=== PATIENT | female | born 1940 | race Caucasian/White ===

== ENCOUNTER 2021-10-25 18:08 | Emergency (ER) | payer MEDICARE, SELFPAY ==
[2021-10-25] VITALS (32 sets, daily range): BP systolic 170–211; BP diastolic 88–137; PULSE 89–109; RESP 13–37; O2SAT 83–99; BMI 39.0
--- NOTE | 2021-10-25 18:17 | XRR_ITS ---
PROCEDURE INFORMATION: Exam: XR Chest Exam date and time: 10/25/2021 6:42 PM Age: 81 years old Clinical indication: Shortness of breath; Additional info: Light-headedness TECHNIQUE: Imaging protocol: XR of the chest. Views: 1 view. COMPARISON: CR Shoulder 2+ views RIGHT* [id number] 03/07/2019 6:59 PM FINDINGS: Lungs: Lungs symmetrically expanded. No consolidation or edema. Pleural spaces: Unremarkable. No pleural effusion. No pneumothorax. Heart/Mediastinum: Cardiac silhouette mildly enlarged accounting for technique. Vasculature: Mild unfolding of the descending aorta. Bones/joints: Right shoulder arthroplasty. XR/XR chest 1V portable [id number] IMPRESSION: No acute radiographic findings.
--- NOTE | 2021-10-25 18:18 | ECG_ITS ---
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 Measurements Intervals [place] Rate: 106 P: 29 MA: 148 QRS: 1 QRSD: 89 T: 59 QT: 332 QTc: 442 Interpretive Statements SINUS TACHYCARDIA ANTEROSEPTAL MYOCARDIAL INFARCTION , PROBABLY OLD [40+ ms Q WAVE IN V1-V4] No previous ECG available for comparison Electronically Signed On 10-26-2021 18:15:21 CDT by Mg Delaney M.D. [id number]
[2021-10-25 18:50] LABS: Basophils % 0.3 %; Eosinophils # 0.1 10^3/uL (0.0-0.8); Hematocrit 47.7 % (37.0-47.0); Hemoglobin 15.6 g/dL (11.5-15.3); Lymphocytes # 1.9 10^3/uL (0.8-4.8); Lymphocytes % 25.2 %; Mean Corpuscular HGB Conc 32.7 g/dL (30.0-36.0); Mean Corpuscular Hemoglobin 28.4 pg (28.0-34.0); Mean Corpuscular Volume 86.9 fl (81-99); Mean Platelet Volume 10.5 fL (7.4-10.4); Monocytes # 0.7 10^3/uL (0.2-0.9); Monocytes % 8.9 %; Neutrophils # 4.94 10^3/uL (1.8-7.7); Neutrophils % 64.5 %; Nucleated Red Blood Cells % 0 %; Platelet Count 252 10^3/cmm (130-400); Red Blood Count 5.49 10^6/uL (4.1-5.3); Red Cell Distribution Width 14.3 % (12.1-15.1); White Blood Count 7.7 10^3/uL (4.0-10.0)
[2021-10-25 19:18] LABS: Blood Urea Nitrogen 18 mg/dL (8-23); Calcium 9.3 mg/dL (8.5-10.5); Carbon Dioxide 27 mmol/L (22-29); Chloride 102 mmol/L (98-107); Glucose 117 mg/dL (65-115); Osmolality Calculated 291 mOsm/kg (285-295); Sodium 139 mmol/L (136-145)
[2021-10-25 19:20] LABS: Anion Gap 13.8 (5-19); Potassium 3.8 mmol/L (3.5-5.1); Troponin(5th) Baseline 9 ng/L (0-10)
--- NOTE | 2021-10-25 19:20 | ED_ITS ---
HPI - General Adult General: Chief complaint: Dizziness Stated complaint: DIZZY Time Seen by Provider: 10/25/21 18:17 History of Present Illness: HPI: [81]yo patient w/ no known PMH BIBA after patient was evaluated seen today in clinic. Patient tells on a clinic staff that she was feeling lightheaded this morning for few seconds. Patient had EKG was done in clinic which showed that she had an old anteroseptal infarct. Patient was told then but declined to come back to the emergency room for further evaluation and full cardiac work-up. Patient denies any extended lightheadedness, chest pain, palpitation, nausea/vomiting, fever/chills, focal weakness or other complaints. Patient could not recall the incident but denies any post-ictal confusion, tongue biting or bladder/bowel incontinence. Patient denies any prior hx of syncope in the past. No associated symptoms of chest pain, shortness of breath, palpitations or focal weakness right before the incident. No family hx of sudden cardiac or unexplained . Onset: earlier today Duration: once Location: clinic Severity: mild Associated symptoms: Deny chest pain, dyspnea, nausea, rash, palpitations or vomiting Review of Systems Const: Denies: fever(s) or chills Eyes: Denies: change in vision ENMT: Denies: mouth pain Card: Denies: chest pain or palpitations Resp: Denies: dyspnea or non-productive cough GI: Denies: abdominal pain, nausea, vomiting or diarrhea : Denies: dysuria Musc: Denies: extremity pain Skin/Breast: Denies: rash or new lesions Neuro: Reports: other (+light-headedness); Denies: weakness in extremities Psych: Reports: other (Normal mood) Te/Lymph: Denies: easy bruising PFS ED PFSH: Medical History (Updated 10/25/21 @ 22:03 by Kalli Cevallos MD) No significant past medical history Social History (Updated 10/25/21 @ 21:15 by Kalli Cevallos MD) Smoking and tobacco status: never smoked Alcohol intake: never Substance/Drug Use: never Physical Exam Const: COMMON NORMALS: alert HENMT: COMMON NORMALS: atraumatic HEAD & SCALP: atraumatic MOUTH: moist mucous membranes not abnormal Eye: COMMON NORMALS: EOMs intact bilaterally and conjunctivae normal CONJUNCTIVA: Yes conjunctivae normal Neck/C-Spine: COMMON NORMALS: full ROM and supple Resp: COMMON NORMALS: normal respiratory effort and clear to auscultation bilaterally AUSCULTATION: clear to auscultation bilaterally Cardio: RATE: tachycardic GI: COMMON NORMALS: Soft to palpation and non-tender PALPATION: Yes Soft to palpation Extremity: COMMON NORMALS: full ROM Neuro: SENSORIUM/ORIENTATION: Yes alert MOTOR EXAM: No Abnormal motor strength present and Other motor observations present (no focal motor deficits) OTHER: Mental status? Awake, alert, and oriented to self, year, month, location, and situation.? Following simple axial and appendicular commands.? Has appropriate fund of knowledge, comprehension, and insight.? Able to recall and understands pertinent aspects of medical history and current treatment status.? ? Language? Speech is fluent without word-finding difficulties.? Intact naming, expression, medical receptionist biller, and repetition.? ? Cranial nerves? 2,3,4,6: PERRL, EOMI with no nystagmus. 5: Intact sensation to light touch, symmetric? 7: Smile symmetrical, no facial droop.? 8: Hearing grossly intact.? 9,10: Normal palate movement.? 11: Normal strength in trapezius bilaterally 12: Tongue protrudes midline.? ? Motor examination? Normal bulk & tone. Strength as follows (R/L): Delts (5/5), Biceps (5/5), Triceps (5/5), Wrist ext (5/5), hip flexors (5/5), plantarflexors (5/5), dorsiflexors (5/5). Sensation? Light Touch: Grossly intact and equal in upper and lower extremities bilater ally? Romberg: Negative.? Distal joint position sense intact ? Coordination? Mzhwnw-so-nbov-finger movements intact without dysmetria or past-pointing.? Rapid fingertaps: preserved amplitude without decriment.? No tremor, myoclonus or truncal ataxia.? ? Gait/stance? Steady, normal narrow base gait with appropriate arm swing and turning.? Tandem gait without hesitation or loss of balance. Psych: COMMON NORMALS: speech normal SPEECH: Yes normal speech MOOD & AFFECT: Yes euthymic mood Course Vital Signs: Vital signs: Vital Signs Pulse Rate 94 04/14/22 21:40 Respiratory Rate 23 H 10/25/21 21:40 Blood Pressure 187/97 10/25/21 21:40 Pulse Oximetry 88 L 10/25/21 21:40 MDM - General Adult Medical Decision Making [81]yo patient w/ no known PMH presenting to the ED with transient light-headedness x 1 episode. No association with chest pain, dyspnea, palpitations, or focal neurological deficits. HDS Neuro intact. Fingerstick wnl. Given history, exam and workup, presentation not consistent with seizures given a short time course, no postictal state, no seizure activity. Low suspicion for acute neurologic catastrophes to include ICH given lack of trauma, risk factors for bleeding diathesis, or neurogenic causes of syncope. Low suspicion for vascular catastrophes to include PE, thoracic aortic dissection, AAA rupture. Presentation not consistent with acute life threatening arrhythmia, structural heart disease, electrical conduction abnormalities, or ACS. Workup: CBC, BMP, troponin x2, EKG x2, CT head/ CTA head & neck Intervention: Serial reevaluation, telemetry, PO challenge, IVF Findings: EKG: No e/o STEMI. No evidence of Brugada?s sign, delta wave, epsilon wave, significantly prolonged QTc, HOCM or malignant arrhythmia. [8:45pm] On reassessment, patient denies any syncope or near syncope episodes in the ER. Telemetry without any dysrhythmia. Patient has been able to tolerate PO and ambulate in the ER without issues. History on arrival, patient was noted to be tachycardic to 110. Patient was appears to be trying hemoconcentrated and 15.6. Patient received 1 L of IVF and now is able to tolerate p.o. without any difficulty. Heart rate improved assessment. At 10:06pm on reassessment, patient denies any syncope or near syncope episodes in the ER. Telemetry without any dysrhythmia. Patient has been able to tolerate PO and ambulate in the ER without issues. Delta troponin <4. I performed shared decision-making with patient regarding admission versus discharge today, and patient prefers to be discharged. I have discussed given patient's risk factors that she would better off admitted to the hospital. Patient tells me I know you know why I am here today. My nurse midwife told me to come here. Patient is adamant that she does not want to stay in the hospital. I explained the risks of leaving the hospital today including lethal arrhythmia, ME, strokes and even . Patient verbalizes understanding of these discussed risk and elect for the alternative of following up earlier next week for evaluation by Cardiology. Patient verbalizes understanding to return for any worsening symptoms including chest pain, dyspnea, fatigue, arm pain/jaw pain/back pain or any new or concerning issues. Patient is currently HDS, ambulated without any difficulties Disposition: Discharge. Patient is at baseline at this time. Return precautions expressed and understood in person. Advised follow up with a primary care provider or clinic physician in the next 24-48 hours. Given return instructions for any new or concerning symptoms including chest pain, focal neurological deficits, dyspnea, or any new or concerning findings. Lab Data : 10/25/21 18:40 10/25/21 18:40 Radiology Impressions Chest X-Ray 10/25/21 18:17 IMPRESSION: No acute radiographic findings. Head CT 10/25/21 19:30 IMPRESSION: 1. No acute findings on noncontrast CT. 2. Atrophy and likely chronic microvascular ischemic change. Head/Neck CTA 10/25/21 19:30 IMPRESSION: All vessels patent. Atherosclerotic calcification causing mild stenosis of the cavernous portions of right and left internal carotid arteries. No significant stenosis. IMPRESSION: No stenosis or occlusion. REFERENCES: NASCET CRITERIA. The degree of internal carotid artery stenosis is based on NASCET criteria. Normal is no stenosis. Mild is less than 50% stenosis. Moderate is 50-69% stenosis. Severe is 70% to 99% stenosis. Total occlusion is no detectable patent lumen. Laboratory Results WBC 7.7 10^3/uL (4.0-10.0) 10/25/21 18:40 Corrected WBC Cancelled 10/25/21 17:51 RBC 5.49 10^6/uL (4.1-5.3) H 10/25/21 18:40 Hgb 15.6 g/dL (11.5-15.3) H 10/25/21 18:40 Hct 47.7 % (37.0-47.0) H 10/25/21 18:40 MCV 86.9 fl (81-99) 10/25/21 18:40 MCH 28.4 pg (28.0-34.0) 10/25/21 18:40 MCHC 32.7 g/dL (30.0-36.0) 10/25/21 18:40 RDW 14.3 % (12.1-15.1) 10/25/21 18:40 Plt Count 252 10^3/cmm (130-400) 10/25/21 18:40 MPV 10.5 fL (7.4-10.4) H 10/25/21 18:40 Gran % Cancelled 10/25/21 17:51 Neut % (Auto) 64.5 % 10/25/21 18:40 Lymph % (Auto) 25.2 % 10/25/21 18:40 [place] % (Auto) 8.9 % 10/25/21 18:40 Eos % (Auto) 1.0 % 10/25/21 18:40 Baso % (Auto) 0.3 % 10/25/21 18:40 Neut # (Auto) 4.94 10^3/uL (1.8-7.7) 10/25/21 18:40 Lymph # (Auto) 1.9 10^3/uL (0.8-4.8) 10/25/21 18:40 [place] # (Auto) 0.7 10^3/uL (0.2-0.9) 10/25/21 18:40 Eos # (Auto) 0.1 10^3/uL (0.0-0.8) 10/25/21 18:40 Baso # (Auto) 0.0 10^3/uL (0.0-0.1) 10/25/21 18:40 Absolute Gran (auto) Cancelled 10/25/21 17:51 Nucleated RBC % (auto) 0 % 10/25/21 18:40 Nucleated RBCs # 0.0 /100WBC 10/25/21 18:40 Sodium 139 mmol/L (136-145) 10/25/21 18:40 Potassium 3.8 mmol/L (3.5-5.1) 10/25/21 18:40 Chloride 102 mmol/L (98-107) 10/25/21 18:40 Carbon Dioxide 27 mmol/L (22-29) 10/25/21 18:40 Anion Gap 13.8 (5-19) 10/25/21 18:40 BUN 18 mg/dL (8-23) 10/25/21 18:40 Creatinine 0.8 mg/dL (0.5-0.9) 10/25/21 18:40 GFR Calculation Not Reportable 10/25/21 18:40 Glucose 117 mg/dL (65-115) H 10/25/21 18:40 Calculated Osmolality 291 mOsm/kg (285-295) 10/25/21 18:40 Calcium 9.3 mg/dL (8.5-10.5) 10/25/21 18:40 Troponin T Baseline 9 ng/L (0-10) 10/25/21 18:40 Troponin T 120 Minute 9.06 ng/L (0-10) 10/25/21 20:34 Delta Troponin T 0.06 ABS# (0-10) 10/25/21 20:34 Discharge Plan Discharge Patient Disposition: Home Clinical Impression: Light headedness Condition: Stable Discharge Orders: Discharge ED (Routine); Ordered 10/25/21 Ordered By: Kalli Cevallos Referrals: Juan José Baptiste [Primary Care Provider] - Discharge Diet: Advance as tolerated Discharge Activity: Increase activity as tolerated Patient Instructions: Lightheadedness (ED) Activity Restrictions/Additional Instructions: Please come back to the emergency room for any more breakthrough episodes of passing out. Come back if any weakness in her arms, drooling, difficulty speaking, any neurological symptoms, chest pain/shortness of breath/palpitation or any new or concerning issues. Please do not swim, bathe, operate heavy machinery or drive a vehicle unattended. Coding Level of Care Code ED X Ray Inspector for Naty Fwarlyn Exam Comprehensive
--- NOTE | 2021-10-25 19:30 | CTR_ITS ---
PROCEDURE INFORMATION: Exam: CT Head Without Contrast Exam date and time: 10/25/2021 8:23 PM Age: 81 years old Clinical indication: Dizziness; Additional info: Eval for pathologies TECHNIQUE: Imaging protocol: Computed tomography of the head without contrast. Radiation optimization: All CT scans at this facility use at least one of these dose optimization techniques: automated exposure control; mA and/or kV adjustment per patient size (includes targeted exams where dose is matched to clinical indication); or iterative reconstruction. COMPARISON: No relevant prior studies available. RADIATION DOSE METRICS: Total DLP (mGy-cm): 844.47 FINDINGS: Brain: No intracranial hemorrhage. Age related atrophy. Marked patchy decreased attenuation of the periventricular white matter is nonspecific but compatible with chronic microvascular ischemia. Incidental small left basal ganglia calcification. Normal cordero-white differentiation with no evidence of edema or territorial infarct. No abnormal mass effect or midline shift. No extra-axial fluid collection. Cerebral ventricles: No ventriculomegaly. Paranasal sinuses: Visualized sinuses are unremarkable. No fluid levels. Mastoid air cells: Visualized mastoid air cells are well aerated. Bones/joints: No acute fracture. Soft tissues: Unremarkable. CT/CT head wo con* [id number] IMPRESSION: 1. No acute findings on noncontrast CT. 2. Atrophy and likely chronic microvascular ischemic change.
--- NOTE | 2021-10-25 19:30 | CTR_ITS ---
PROCEDURE INFORMATION: Exam: CT Angiography Head With Contrast, Arteriography Exam date and time: 10/25/2021 8:26 PM Age: 81 years old Clinical indication: Dizziness and giddiness; Additional info: Eval for pathologies TECHNIQUE: Imaging protocol: Computed tomography angiography of the head with contrast. Exam focused on the arteries. 3D rendering (Not supervised by radiologist): MIP and/or 3D reconstructed images were created by the technologist. Radiation optimization: All CT scans at this facility use at least one of these dose optimization techniques: automated exposure control; mA and/or kV adjustment per patient size (includes targeted exams where dose is matched to clinical indication); or iterative reconstruction. Contrast material: OMNI 350; Contrast volume: 95 ml; Contrast route: INTRAVENOUS (IV); COMPARISON: 1. CT head wo con* [id number] 10/25/2021 8:23 PM 2. CR (CHEST, ) 10/25/2021 6:42 PM RADIATION DOSE METRICS: Total DLP (mGy-cm): 1805.13 FINDINGS: ANTERIOR CIRCULATION: Right internal carotid artery: Atherosclerotic calcification of the cavernous segment causing mild stenosis. Intracranial segment is patent with no significant stenosis. No aneurysm. Right middle cerebral artery: Unremarkable. No occlusion or significant stenosis. No aneurysm. Right anterior cerebral artery: Unremarkable. No occlusion or significant stenosis. No aneurysm. Left internal carotid artery: Atherosclerotic calcification of the cavernous segment causing mild stenosis. Intracranial segment is patent with no significant stenosis. No aneurysm. Left middle cerebral artery: Unremarkable. No occlusion or significant stenosis. No aneurysm. Left anterior cerebral artery: Unremarkable. No occlusion or significant stenosis. No aneurysm. POSTERIOR CIRCULATION: Right vertebral artery: Unremarkable. No occlusion or significant stenosis. No aneurysm. Left vertebral artery: Unremarkable. No occlusion or significant stenosis. No aneurysm. Basilar artery: Unremarkable. No occlusion or significant stenosis. No aneurysm. Right posterior cerebral artery: Unremarkable. No occlusion or significant stenosis. No aneurysm. 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 Left posterior cerebral artery: Unremarkable. No occlusion or significant stenosis. No aneurysm. Brain: No definite mass, mass effect, or midline shift. Cerebral ventricles: No ventriculomegaly. Bones/joints: Unremarkable. No acute fracture. Soft tissues: Unremarkable. PROCEDURE INFORMATION: Exam: CT Angiography Neck With Contrast Exam date and time: 10/25/2021 8:26 PM Age: 81 years old Clinical indication: Dizziness and giddiness; Additional info: Eval for pathologies TECHNIQUE: Imaging protocol: Computed tomography angiography of the neck with contrast. 3D rendering (Not supervised by radiologist): MIP and/or 3D reconstructed images were created by the technologist. Radiation optimization: All CT scans at this facility use at least one of these dose optimization techniques: automated exposure control; mA and/or kV adjustment per patient size (includes targeted exams where dose is matched to clinical indication); or iterative reconstruction. Contrast material: OMNI 350; Contrast volume: 95 ml; Contrast route: INTRAVENOUS (IV); COMPARISON: 1. CT head wo con* [id number] 10/25/2021 8:23 PM 2. CR (CHEST, ) 10/25/2021 6:42 PM RADIATION DOSE METRICS: Total DLP (mGy-cm): 1805.13 FINDINGS: Right common carotid artery: No stenosis. No dissection or occlusion. Right internal carotid artery: No stenosis of the extracranial segment. No dissection or occlusion. Right external carotid artery: No occlusion or stenosis of the origin. Left common carotid artery: No stenosis. No dissection or occlusion. Left internal carotid artery: No stenosis of the extracranial segment. No dissection or occlusion. Left external carotid artery: No occlusion or stenosis of the origin. Right vertebral artery: No stenosis. No dissection or occlusion. Left vertebral artery: No stenosis. No dissection or occlusion. Soft tissues: Normal. No significant soft tissue swelling. Bones/joints: No acute fracture. Degenerative changes at C5 through 7 with disc space narrowing, uncovertebral joint hypertrophy and small osteophytes causing mild stenosis of the central canal and moderate to severe stenosis of the bilateral neural foramina. CT/CT angio headneck* [id number] IMPRESSION: All vessels patent. Atherosclerotic calcification causing mild stenosis of the cavernous portions of right and left internal carotid arteries. No significant stenosis. IMPRESSION: No stenosis or occlusion. REFERENCES: NASCET CRITERIA. The degree of internal carotid artery stenosis is based on NASCET criteria. Normal is no stenosis. Mild is less than 50% stenosis. Moderate is 50-69% stenosis. Severe is 70% to 99% stenosis. Total occlusion is no detectable patent lumen.
[2021-10-25] MEDS: sodium chloride 0.9% 500 ML IV ×2 (19:48→21:30)
[2021-10-25] MEDS: iohexol 350 mg/mL 100 mL Btl IV (20:35)
[2021-10-25 20:58] LABS: Troponin 5 2HR 9.06 ng/L (0-10)
[2021-10-25 21:05] LABS: Troponin 5 2HR Delta 0.06 ABS# (0-10)
[2021-10-25] MEDS: metoprolol tartrate 1 mg/1 mL SDV 5 mL 2.5 MG IVP (21:31)
--- NOTE | 2021-10-26 11:36 | DCPLANNER ---
Addendum entered by Katerina Cota 12/07/21 17:42: Patient had a follow up appointment scheduled for 12.04.21 with [facility] - patient did not attend appointment. Addendum entered by Katerina Cota 10/30/21 15:08: Patient has a follow up appointment scheduled for Saturday, December 04, 2021 at 3:[address] Burger, at [facility]. geophysical manager unable to speak with patient and unable to leave a voicemail for patient. geophysical manager sent patient a letter with appointment information to patient. Original Note: geophysical manager had message to schedule a follow up appointment for patient with [facility]. geophysical manager sent patients information to [facility] front staff for review. Patients information will be printed and reviewed. Clinic will call patient with appointment information.
== END 2021-10-25 22:58 | disposition home or self-care (01) ==
PROVIDERS: Emergency Provider Emergency Medicine; PCP Family Medicine
DX: R42 Dizziness and giddiness (principal)
CPT/HCPCS: 70450; 70496; 70498; 71045; 80048; 84484; 85025; 93005; 96361; 96374; 99284; J3490; J7040; Q9967

== ENCOUNTER 2024-07-21 11:26 | Observation (INO) | payer MEDICARE, SELFPAY ==
[2024-07-21] VITALS (8 sets, daily range): BP systolic 97–164; BP diastolic 73–94; PULSE 86–111; RESP 16–22; TEMP 36.6–36.8; O2SAT 94–98; BMI 5185.3
--- NOTE | 2024-07-21 11:30 | ECG_ITS ---
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 Measurements Intervals [place] Rate: 100 P: 62 DE: 162 QRS: -31 QRSD: 93 T: 50 QT: 334 QTc: 432 Interpretive Statements SINUS TACHYCARDIA LEFT AXIS DEVIATION [QRS AXIS < -30] POSSIBLE ANTERIOR MYOCARDIAL INFARCTION , PROBABLY OLD [30 ms Q WAVE IN V3/V4, OR R < 0.2 mV IN V4] Compared to ECG 10/25/2021 18:27:10 Left-axis deviation now present Myocardial infarct finding still present Electronically Signed On 07-21-2024 17:24:00 ARCH PAD CEMENTER by Mg Delaney M.D. [email or web address]
[2024-07-21 12:05] LABS: Basophils # 0.1 10^3/uL (0.0-0.1); Basophils % 0.5 %; Eosinophils % 8.1 %; Hematocrit 39.4 % (36-47); Lymphocytes # 1.4 10^3/uL (0.8-4.8); Lymphocytes % 11.2 %; Mean Corpuscular HGB Conc 30.7 g/dL (30-55); Mean Corpuscular Hemoglobin 26.9 pg (27-33); Mean Corpuscular Volume 87.6 fl (85-98); Mean Platelet Volume 10.1 fL (7.4-10.4); Monocytes # 0.9 10^3/uL (0.2-0.9); Monocytes % 7.6 %; Neutrophils # 8.75 10^3/uL (1.8-7.7); Neutrophils % 72.4 %; Nucleated Red Blood Cells % 0 %; Platelet Count 270 10^3/cmm (157-399); Red Cell Distribution Width 15.4 % (12.1-15.1); White Blood Count 12.09 10^3/uL (3.29-11.43)
--- NOTE | 2024-07-21 12:27 | W.ED.AMS ---
HPI - Altered Mental Status General: Chief Complaint: Altered Mental Status Stated Complaint: 96 hr hold Time Seen by Provider: 07/21/24 11:49 Source: police Limitations: altered mental status History of Present Illness: 83-year-old female who is here with police patient's had last year she lives home alone has had some dementia they are concerned she is not able to properly take care of herself she did have any food in the house she has had no heat. Patient here for does not have any suicidal or homicidal thoughts she does have some confusion she does believe her still alive she does not know the year. Related Data Home Medications Medication Instructions Recorded Confirmed acetaminophen 325 mg tablet 325 mg PO QID PRN pain or fever 07/21/24 07/21/24 (Tylenol) aspirin 325 mg tablet (Roque 325 mg PO BID 07/21/24 07/21/24 Aspirin) Allergies Allergy/AdvReac Type Severity Reaction Status Date / Time chlorine Allergy ADR-Nausea Uncoded 10/25/21 18:25 Review of Systems Const: Denies: fever(s), chills, body aches or change in appetite ENMT: Denies: throat pain or dental pain Card: Denies: chest pain Resp: Denies: dyspnea GI: Denies: abdominal pain, nausea, vomiting or diarrhea Musc: Denies: neck pain or back pain Skin/Breast: Denies: rash Neuro: Reports: confusion; Denies: headache(s) PFS ED PFSH: Medical History No significant past medical history Social History Smoking and tobacco/nicotine status: never used tobacco/nicotine Alcohol intake: never Substance/Drug Use: never Physical Exam Const: COMMON NORMALS: negative for patient oriented x3 HENMT: COMMON NORMALS: normocephalic and atraumatic HEAD & SCALP: normocephalic and atraumatic Neck/C-Spine: COMMON NORMALS: full ROM and supple Chest: COMMONS NORMALS: normal inspection of the chest Resp: COMMON NORMALS: normal respiratory effort, No retractions, No use of accessory muscles and clear to auscultation bilaterally AUSCULTATION: clear to auscultation bilaterally Cardio: COMMON NORMALS: regular rate, regular rhythm and No murmurs present (Cardio) RATE: regular rate RHYTHM: regular rhythm GI: COMMON NORMALS: Normal to inspection, nondistended, normoactive bowel sounds present, Soft to palpation, non-tender and no masses PALPATION: Yes Soft to palpation Extremity: COMMON NORMALS: normal to inspection and full ROM Neuro: COMMON NORMALS: moves all extremities and no focal motor deficits; negative for patient oriented x3 Psych: COMMON NORMALS: cooperative; negative for mental status grossly normal Skin: COMMON NORMALS: no rashes or lesions noted and no wounds GENERAL SKIN EXAM: no rashes or lesions noted Course Vital Signs: Vital signs: Vital Signs Pulse Rate 108 H 07/21/24 15:11 Pulse Oximetry 98 07/21/24 15:11 MDM - Altered Mental Status Medical Decision Making Patient presents here with altered mental status likely from her dementia patient does live home alone is not able to care for self does not have heat she was brought in under 96-hour hold but has no acute psychiatric complaints have Dr. Burdick reviewing and will likely resend her 96-hour hold have had social work working we will attempt to place the care home I spoke to the hospitalist will admit at this time Lab Data I reviewed the patient's lab results. 07/21/24 11:57 07/21/24 11:[address] 07/21/24 12:44 IMPRESSION: 1. No acute intracranial hemorrhage or edema. 2. Mild progression of moderate atrophy and advanced small vessel disease since 2021. Chest X-Ray 07/21/24 15:13 Impression: Atherosclerosis and cardiomegaly. Laboratory Results WBC 12.09 10^3/uL (3.29-11.43) H 07/21/24 11:57 RBC 4.50 10^6/uL (3.85-5.65) 07/21/24 11:57 Hgb 12.10 g/dL (11.27-16.99) 07/21/24 11:57 Hct 39.4 % (36-47) 07/21/24 11:57 MCV 87.6 fl (85-98) 07/21/24 11:57 MCH 26.9 pg (27-33) L 07/21/24 11:57 MCHC 30.7 g/dL (30-55) 07/21/24 11:57 RDW 15.4 % (12.1-15.1) H 07/21/24 11:57 Plt Count 270 10^3/cmm (157-399) 07/21/24 11:57 MPV 10.1 fL (7.4-10.4) 07/21/24 11:57 Neut % (Auto) 72.4 % 07/21/24 11:57 Lymph % (Auto) 11.2 % 07/21/24 11:57 Menard % (Auto) 7.6 % 07/21/24 11:57 Eos % (Auto) 8.1 % 07/21/24 11:57 Baso % (Auto) 0.5 % 07/21/24 11:57 Neut # (Auto) 8.75 10^3/uL (1.8-7.7) H 07/21/24 11:57 Lymph # (Auto) 1.4 10^3/uL (0.8-4.8) 07/21/24 11:57 Menard # (Auto) 0.9 10^3/uL (0.2-0.9) 07/21/24 11:57 Eos # (Auto) 1.0 10^3/uL (0.0-0.8) H 07/21/24 11:57 Baso # (Auto) 0.1 10^3/uL (0.0-0.1) 07/21/24 11:57 Nucleated RBC % (auto) 0 % 07/21/24 11:57 Nucleated RBCs # 0.0 /100WBC 07/21/24 11:57 Sodium 138 mmol/L (136-145) 07/21/24 11:57 Potassium 4.1 mmol/L (3.5-5.1) 07/21/24 11:57 Chloride 103 mmol/L (98-107) 07/21/24 11:57 Carbon Dioxide 23 mmol/L (22-29) 07/21/24 11:57 Anion Gap 16.1 (5-19) 07/21/24 11:57 BUN 17 mg/dL (8-23) 07/21/24 11:57 Creatinine 0.8 mg/dL (0.5-0.9) 07/21/24 11:57 GFR Calculation Not Reportable 07/21/24 11:57 Glucose 106 mg/dL (65-115) 07/21/24 11:57 Calculated Osmolality 288 mOsm/kg (285-295) 07/21/24 11:57 Calcium 9.3 mg/dL (8.5-10.5) 07/21/24 11:57 Total Bilirubin 0.6 mg/dL (0.15-1.2) 07/21/24 11:57 AST 20 U/L (0-32) 07/21/24 11:57 ALT 25 U/L (0-33) 07/21/24 11:57 Alkaline Phosphatase 114 U/L (35-105) H 07/21/24 11:57 Total Protein 6.8 g/dL (6.6-8.7) 07/21/24 11:57 Albumin 3.9 g/dL (3.5-5.2) 07/21/24 11:57 Globulin 2.9 g/dL (1.3-4.6) 07/21/24 11:57 Urine Color Yellow (Yellow) 07/21/24 13:03 Urine Appearance Cloudy (CLEAR) A 07/21/24 13:03 Urine pH 5.0 (5-7) 07/21/24 13:03 Ur Specific Deering 1.020 (1.005-1.030) 07/21/24 13:03 Urine Protein 1+ (Negative) A 07/21/24 13:03 Urine Glucose (UA) Negative (Normal) 07/21/24 13:03 Urine Ketones Negative (Negative) 07/21/24 13:03 Urine Blood Negative (Negative) 07/21/24 13:03 Urine Nitrate Negative (Negative) 07/21/24 13:03 Urine Bilirubin Negative (Negative) 07/21/24 13:03 Urine Urobilinogen 0.2 mg/dL (Negative) 07/21/24 13:03 Ur Leukocyte Esterase Negative (Negative) 07/21/24 13:03 Urine RBC 0-2 /hpf (0-2) 07/21/24 13:03 Urine WBC 11-20 /hpf (0-5) H 07/21/24 13:03 Ur Squamous Epith Cells 11-20 /hpf (0-5) 07/21/24 13:03 Amorphous Sediment Not Reportable 07/21/24 13:03 Urine Bacteria 1+ /hpf (NONE) H 07/21/24 13:03 Hyaline Casts 6.17 /lpf 07/21/24 13:03 Fine Granular Casts Rare /lpf 07/21/24 13:03 Salicylates < 0.3 mg/dL (3-10) L 07/21/24 11:57 Urine Opiates Screen Negative ng/mL (Negative) 07/21/24 13:03 Acetaminophen < 5.0 ug/mL (10-30) L 07/21/24 11:57 Ur Barbiturates Screen Negative ng/mL (Negative) 07/21/24 13:03 Ur Phencyclidine Scrn Negative ng/mL (Negative) 07/21/24 13:03 Ur Amphetamines Screen Negative ng/mL (Negative) 07/21/24 13:03 U Benzodiazepines Scrn Negative ng/mL (Negative) 07/21/24 13:03 Urine Cocaine Screen Negative ng/mL (Negative) 07/21/24 13:03 U Marijuana (THC) Screen Negative ng/mL (Negative) 07/21/24 13:03 Ethyl Alcohol < 10 mg/dL (0-10) 07/21/24 11:57 Adenovirus (PCR) Not detected (NOT DETECT) 07/21/24 12:30 C. pneumoniae DNA (PCR) Not detected (NOT DETECT) 07/21/24 12:30 Coronavirus 229E (PCR) Not detected (NOT DETECT) 07/21/24 12:30 Human Metapneumovir PCR Not detected (NOT DETECT) 07/21/24 12:30 Influenza A (H1) PCR Not detected (NOT DETECT) 07/21/24 12:30 Influ A (H1/09) PCR Not detected (NOT DETECT) 07/21/24 12:30 Influenza A (H3) PCR Not detected (NOT DETECT) 07/21/24 12:30 Influenza Type A (PCR) Not detected (NOT DETECT) 07/21/24 12:30 Influenza Type B (PCR) Not detected (NOT DETECT) 07/21/24 12:30 M. pneumoniae (PCR) Not detected (NOT DETECT) 07/21/24 12:30 Parainfluenza 1 (PCR) Not detected (NOT DETECT) 07/21/24 12:30 Parainfluenza 2 (PCR) Not detected (NOT DETECT) 07/21/24 12:30 Parainfluenza 3 (PCR) Not detected (NOT DETECT) 07/21/24 12:30 Parainfluenza 4 (PCR) Not detected (NOT DETECT) 07/21/24 12:30 RSV Type A (PCR) Not detected (NOT DETECT) 07/21/24 12:30 RSV Type B (PCR) Not detected (NOT DETECT) 07/21/24 12:30 Entero/Rhino (PCR) Not detected (NOT DETECT) 07/21/24 12:30 SARS-CoV-2 (PCR) Not detected (NOT DETECT) 07/21/24 12:30 All radiology interpretation(s) finalized by discharge EKG Data EKG 1: I personally reviewed and interpreted this EKG as follows: EKG interpretation date: 07/21/24 EKG interpretation time: 12:26 Interpretation: sinus tach hr [address] or t wave abnormalities qrs 93 qtc 391 Discharge Plan Discharge Patient Disposition: Admitted As Inpatient Clinical Impression: Altered mental status, Dementia Condition: Stable Prescriptions: No Action acetaminophen [Tylenol] 325 mg Tablet 325 mg PO QID PRN (Reason: pain or fever ) aspirin [Roque Aspirin] 325 mg Tablet 325 mg PO BID Referrals: Juan José Baptiste [Primary Care Provider] - Patient Instructions: Altered Mental Status (ED) Coding Level of Care Code ED Solar Installation Helper for Naty Michele
[2024-07-21 12:28] LABS: Alanine Aminotransferase 25 U/L (0-33); Albumin Level 3.9 g/dL (3.5-5.2); Alkaline Phosphatase 114 U/L (35-105); Anion Gap 16.1 (5-19); Aspartate Amino Transferase 20 U/L (0-32); Blood Urea Nitrogen 17 mg/dL (8-23); Calcium 9.3 mg/dL (8.5-10.5); Carbon Dioxide 23 mmol/L (22-29); Chloride 103 mmol/L (98-107); Globulin 2.9 g/dL (1.3-4.6); Glucose 106 mg/dL (65-115); Osmolality Calculated 288 mOsm/kg (285-295); Potassium 4.1 mmol/L (3.5-5.1); Sodium 138 mmol/L (136-145); Total Bilirubin 0.6 mg/dL (0.15-1.2); Total Protein 6.8 g/dL (6.6-8.7)
[2024-07-21 12:31] LABS: Acetaminophen < 5.0 ug/mL (10-30); Alcohol Level < 10 mg/dL (0-10); Salicylate < 0.3 mg/dL (3-10)
--- NOTE | 2024-07-21 12:44 | CT_ITS ---
WS: [id number] CT HEAD NONCONTRAST HISTORY: ams TECHNIQUE: Contiguous axial imaging performed through the brain. Bone and soft tissue windows. Sagitt al and coronal reformats reviewed. All CT scans at [facility] use at least one of these dose optimization techniques: automated exposure control; mA and/or kV adjustment per patient size (includ es targeted exams where dose is matched to clinical indication); or iterative reconstruction. DLP: 1155.58 mGy.cm COMPARISON: CT head 10/25/2021 No acute intracranial hemorrhage, midline shift or mass effect. Moderate atrophy with advanced small vessel disease. Mild progression since 10/25/2021. Mild cerebella r atrophy. Ventricles: Mildly particular dilatation on the basis of atrophy. Paranasal sinuses: As visualized are clear. Mastoid air cells: Well pneumatized. Calvarium and scalp: Skull is intact with no soft tissue edema or swelling. CT/CT head wo con* 13721 IMPRESSION: 1. No acute intracranial hemorrhage or edema. 2. Mild progression of moderate atrophy and advanced small vessel disease sinc e 2021.
[2024-07-21 13:12] LABS: Bilirubin Urine Negative (Negative); Blood Urine Negative (Negative); Glucose Urine UA Negative (Normal); Ketones Urine Negative (Negative); Leukocyte Esterase Urine Negative (Negative); Nitrate Urine Negative (Negative); Protein Urine 1+ (Negative); Urine Appearance Cloudy (CLEAR); Urine Color Yellow (Yellow); Urobilinogen Urine 0.2 mg/dL (Negative)
[2024-07-21 13:17] LABS: Add Urine Microscopic? YES; Bacteria Urine 1+ /hpf; Hyaline Casts Urine 6.17 /lpf; RBC Urine 0-2 /hpf (0-2)
[2024-07-21 13:19] LABS: Amphetamines Screen Urine Negative (Negative); Barbiturates Screen Urine Negative (Negative); Benzodiazepines Screen Urine Negative (Negative); Cocaine Screen Urine Negative (Negative); Opiate Screen Urine Negative (Negative); PCP Screen Urine Negative (Negative); THC Screen Urine Negative (Negative)
[2024-07-21 13:33] LABS: UA Slide Review UA Slide Review Perf
[2024-07-21 13:34] LABS: Add Urine Culture? No; Fine Granular Casts Urine RARE /lpf
--- NOTE | 2024-07-21 13:36 | PC.PHAR ---
Patient states she is diabetic . She uses a Pharmacy i,f she needs medication ,in [place]. They Pharmacy is currently closed for lunch . Will call back at 2pm.
--- NOTE | 2024-07-21 13:50 | PC.NURSE ---
96 hour hold rights read and reviewed to patient. Patient stated I don't even know why i am here why are you putting me on this? This nurse explained that she was brought in on a court order 96 hour hold. Patient verbalized understandings and copy of rights given to patient.
--- NOTE | 2024-07-21 14:22 | PC.PHAR ---
I contacted Pharmacy they have nothing on file. I then called [facility] in [place] and spoke to Elizabeth trying to find any medication history . Elizabeth did state Patient hadn't been seen since December 2021. Earlier in 2021 she was diagnosed with Dementia and Type 2 Diabetes with stage 3 chronic kidney disease .
[2024-07-21 14:31] LABS: Adenovirus Not Detected (NOT DETECT); Chlamydia Pneumoniae Not Detected (NOT DETECT); Coronavirus 229E,HKU1,NL63,OC4 Not Detected (NOT DETECT); Human Metapneumovirus Not Detected (NOT DETECT); Human Rhinovirus/Enterovirus Not Detected (NOT DETECT); Influenza A Not Detected (NOT DETECT); Influenza A H1 Not Detected (NOT DETECT); Influenza A H1-2009 Not Detected (NOT DETECT); Influenza A H3 Not Detected (NOT DETECT); Influenza B Not Detected (NOT DETECT); Mycoplasma Pneumoniae Not Detected (NOT DETECT); Parainfluenza Virus Type 1 Not Detected (NOT DETECT); Parainfluenza Virus Type 2 Not Detected (NOT DETECT); Parainfluenza Virus Type 3 Not Detected (NOT DETECT); Parainfluenza Virus Type 4 Not Detected (NOT DETECT); Respiratory Syncytial Virus A Not Detected (NOT DETECT); Respiratory Syncytial Virus B Not Detected (NOT DETECT); SARS-COV-2 Not Detected (NOT DETECT)
--- NOTE | 2024-07-21 15:00 | PC.SOCIAL ---
Addendum entered by Batool Jenkins RN 07/23/24 10:05: CM Consult CM called for consult on patient needing assistance with placement. CM to ER to visit with patient. When entering room with Dr. Hendrickson, patient has [facility], and APS worker Zarina Ritter at bedside. Patient was apparently brought here by deputy, as per Zarina, We tried to get EMS to bring her last night, and that didn't work out. Zarina states that they were doing a wellbeing check on patient and found patient in a home with no heat. CM familiar with family and situation as we cared for her last year. CM asked about patient's nephew, if he was still in the home, Zarina states no, he is gone. CM asked about patient's friend/neighbor, Audra that was very involved and worried about Neeta last year. Zarina doesn't respond. Patient does, stating, My closest friend is Audra Dominguez. Zarina indicates that her plan is to pursue guardianship and placement for patient. CM asks what has been completed since CM and her have previously discussed patient (at time of patient's late husbands care, last year), or when the last time she saw patient was. Zarina stated that she had saw patient in May, but had to close her case because she didn't have any supporting data. Zarina reported that patients home was full of feces, that it was freezing cold, and patient was not even aware that it was cold. She states that if you send her home, she is going to . CM asked how she intended for her to go to a SNF, as she does not have a alf payer source, and this was known at the time we discussed it last year as well. Zarina stated I will apply for it. CM updated Zarina that CM would discuss with provider to see what the indicated plan of care was and if she had any medical necessity for admission, but she may not meet any requirement for admission. Zarina stated at that time, well you will have to transfer her anyways. CM questioned what she meant by transfer. Zarina indicated for [facility]. CM explained that patient was not having any psych behaviors and would likely not meet criteria for admission at any [facility] facility. Zarina's response was, That's because I don't have her riled up. CM rounded with providers and hospital administration, and was later notified that Zarina and were having a signed 96hr. hold faxed over from the [facility]. [facility] would be pursued. Patient was declined by [facility]. Referral faxed to Laura Pichardo, [facility], [facility], [facility], [facility], [facility], Michael Cho, [facility], [facility], [facility], and Yong Pichardo. Original Note: CM Consult
--- NOTE | 2024-07-21 15:13 | XR_ITS ---
WS: [id number] Portable AP upright chest, 07/21/2024 Clinical Data: placement for psych Comparison: Portable chest, 10/25/2021 Findings: No nodules, masses or effusions are seen. The heart is enlarged. The pulmonary vascularity is not increased. No pneumonia or pneumothorax is seen. The aortic arch and descending thoracic aorta show calcification and tortuosity. There is a total right shoulder prosthesis in good position. XR/XR chest 1V portable [id number] Impression: Atherosclerosis and cardiomegaly.
--- NOTE | 2024-07-21 15:14 | PC.NURSE ---
[facility] Dept [place]: Kanwal Dhaliwal Social Service: Zarina Matos:
--- NOTE | 2024-07-21 16:05 | PC.NURSE ---
per Demetria at [facility] in [place], [place] that this pt would be eligible for NH placement with the following: admit to hospital through midnight (not observation) physical therapy and nurse notes for insurance pre-authorization pt could stay without guardian, Demetria nelson will call son to see if he will be DPOA NH phone #
--- NOTE | 2024-07-21 16:25 | PC.NURSE ---
per Demetria at [facility]: son will be here tomorrow to assist pt in setting up Medicaid and discussing DPOA Son is Tawanna Wick
--- NOTE | 2024-07-21 17:14 | PM.HP ---
Providers/Chief Complaint Admitting Physician: Kimi suggs MD Primary Care Provider: Juan José Baptiste Chief Complaint: 96 hr hold History of Present Illness Neeta Silva is a 83 year old female who is Brought in by police and the social and political studies professor today due to concern for her safety. It appears a wellness check was called on the patient following which the [facility] went into check on her. They found her in very poor conditions at home. There was reportedly feces all over her home. She had no heat. There was limited food. She did not remeber that her had late last year. She is currently able to tell me her correct name, age, , knows that she is in a hospital but thinks she is at [facility] instead of [place]. When i tell her that her last year and she was bedside at that time (I had taken care of her in the hospital previosuly), she states she has no recollection of the events. Even after being reminded that her is gone, a few minutes later she states that jitendra is probably home . She doesn't understand why she is in the hospital. When i tell her that she was brought in by the carbon paste mixer operator and her social and political studies professor as she had no heat in the home and was in poor living conditions, she does not seem to agree with that. She thinks she has heat in the house. She states she has 4 children and names them all. She states she her daughter from leukemia. She talks about a lot of events from her childhood and is overall very pleasant. She seems to acknowldge that she has several memory gaps and currently has a head cold that's making her confused. At the end of our interview, she states that i believe Jitendra is gone and that's why I'm here as he used to take good care of me . She denies being on any exterminator helper medications At the time of interview, she doesnt have any pants on and states she took them off as they got soiled. She states she made a mess . She has a bedside commode and is attempting to use it but can't seem to move to it quickly enough. She states she doesnt mind being in a sheet without pants on. She is letting us help her with dressing, etc. Denies being sick recently however im not certain how releiable she is. We will attempt to reach out to her listed PCP in am to obtain collateral information with regards to her baseline mentation. In my current interview, she appears to have some degree of dementia with poor insight. Review of Systems General: Reports: ROS unobtainable due to medical condition Medications/Allergies Home Medications Medication Instructions Recorded Confirmed Last Taken Type acetaminophen 325 mg tablet 325 mg PO QID PRN pain or fever 07/21/24 07/21/24 Unknown History (Tylenol) aspirin 325 mg tablet (Roque 325 mg PO BID 07/21/24 07/21/24 Unknown History Aspirin) Allergies Allergy/AdvReac Type Severity Reaction Status Date / Time chlorine Allergy ADR-Nausea Uncoded 10/25/21 18:25 PFSH Acute PFSH: Medical History No significant past medical history Social History Smoking and tobacco/nicotine status: never used tobacco/nicotine Alcohol intake: never Substance/Drug Use: never Vitals/I&O/Wt Last Vital Signs Pulse 101 H 07/21/24 16:29 BP 97/73 07/21/24 16:29 Pulse Ox 96 07/21/24 16:29 O2 Del Method Room Air 07/21/24 16:29 Physical Exam Narrative: General: No acute distress, confused HEENT: PERRLA, pupils bilaterally equal and reactive, pallors not present Chest: Normal vesicular breath sounds, no added sounds, equal good air entry bilaterally CVS: S1-S2 regular, no murmurs, no tachycardia, no gallops, no rubs Abdomen: Soft, nontender, no organomegaly, bowel sounds present Neuro: No focal deficits, no facial deformity, AO x3, power 5/5 in all limbs Data 07/21/24 11:57 07/21/24 11:57 A&P Assessment and plan (1) Dementia: Patient appears to have underlying dementia HPI above for details Ct head without acute intracranial abnormalities Patient is forgetful, appears to have poor insight, appears to be having difficulty with tasks witnessed in room such as moving to commode, fidgeting with her pulse ox, lying without pants, leaving clothes on the floor, etc. This appears to be her baseline per available accounts so far She was previously cared for by her but he has since passed She was found in her home that appears to have unfit living conditions attempted to reach son- no answer- unable to leave voicemail as mailbox full obtain Angelita's assessment She is currently on a 96 hr hold, psych to see needs frequent redirection (2) UTI (urinary tract infection): WBC 11-20, 1+ bacteria, leukocytosis with WBC 12K possible UTI ? Start cefuroxime 500mg BID empirically , obtain urine cx Plan dvt ppx: Scd Full code for now Attestations Medical Necessity Statement*: less than2 midnight stay anticipated Coding Level of Care Code Acute Code for Chg Fwd High Time for a total of 60 minutes, includes reviewing past or interval history, examining/interviewing patient, placing orders, counseling patient/family/other support, updating patient/family/other support, discussing plan of care with staff, communicating with other healthcare providers, documenting encounter and coordinating care Diagnoses Dementia F03.90 UTI (urinary tract infection) N39.0
--- NOTE | 2024-07-21 17:52 | PC.NURSE ---
report called to Blanca upstairs, no further questions/concerns; aware of pt not having IV.
--- NOTE | 2024-07-21 18:16 | P.NPUCON_ITS ---
Providers/Reason for Consult 2 Consulting Physican/Specialty*: Godfrey Burdick MD. Psychiatry. Reason for Consult*: Evaluate for need for inpatient psychiatric services. Attending Physician: Manish Hendrickson MD Primary Care Provider: Juan José Baptiste Psych Consult HPI History of Present Illness Neeta Silva is a 83 year old female who presented to the emergency department with the following report: Chief Complaint: Altered Mental Status Stated Complaint: 96 hr hold Time Seen by Provider: 07/21/24 11:49 Source: police Limitations: altered mental status History of Present Illness: 83-year-old female who is here with police patient's had last year she lives home alone has had some dementia they are concerned she is not able to properly take care of herself she did have any food in the house she has had no heat. Patient here for does not have any suicidal or homicidal thoughts she does have some confusion she does believe her still alive she does not know the year. She was admitted to the medical floor for definitive treatment of her presenting issues. A psychiatric consult was requested to determine whether there was need for acute psychiatric care as she presented on a 96-hour hold. Patient reported that she was feeling really sick and needed help this why she presented to the hospital. She had a clear understanding of not feeling well but most other questions she had limited ability to answer with clarity. She reported living in some facility but then turned around and said that she lives at home with a person who she named and called her . But then she started reporting that she did not know where he was. She later identified this person is being her but not knowing where he was but then as we started talking she had greater uncertainty about him later identifying that this was her but if she was being honest she did not know if he was alive or not. She was able to describe that recently her memory had been failing and demonstrated this by having no orientation to the season, month and year or any identifiable pieces of information about where we are or things of that nature. However when asked about feeling suicidal or having thoughts to kill herself she was appalled and said that she would never do that even if she was feeling really depressed. She said that is because she is a Orthodox and knows that if she dies that way she will go to [facility] and would be able to see her again identifying that she thinks he might be . She also denied any homicidal ideation but did report she was struggling at home, that she did not have any help and lack some basic necessities for her to be able to survive the winter in this [place] the [place]. There did not appear to be any other extractable psychosocial information that would have a bearing on evaluating her need for inpatient psychiatric care. Meds Home Medications and Allergies Home Medications Medication Instructions Recorded Confirmed Last Taken Type acetaminophen 325 mg tablet 325 mg PO QID PRN pain or fever 07/21/24 07/21/24 Unknown History (Tylenol) aspirin 325 mg tablet (Roque 325 mg PO BID 07/21/24 07/21/24 Unknown History Aspirin) Allergies Allergy/AdvReac Type Severity Reaction Status Date / Time chlorine Allergy ADR-Nausea Uncoded 10/25/21 18:25 Current Medications Current Medications Generic Name Dose Route Start Last Admin Trade Name Freq PRN Reason Stop Dose Admin Cefuroxime Axetil 500 mg 07/21/24 18:01 07/23/24 09:39 Cefuroxime 250 Mg Tablet PO 500 mg BID ROMY Administration Protocol Nystatin 1 applic 07/22/24 09:00 07/23/24 09:40 Nystatin Powder 15 Gm Btl TOPICAL 1 applic BID ROMY Administration Pantoprazole Sodium 40 mg 07/22/24 09:00 07/23/24 09:[address] 40 Mg Tablet PO 40 mg DAILY ROMY Administration PFSH NPU 2 PFSH: Medical History No significant past medical history Social History Smoking and tobacco/nicotine status: never used tobacco/nicotine Alcohol intake: never Substance/Drug Use: never Mental Status Exam 2 MSE Comments: This is an overweight versus obese elderly white female in hospital scrubs with poor grooming and hygiene but adequate eye contact. No abnormal movements except for mild psychomotor agitation. Cooperative with exam in mild to moderate distress. Speech was dysarthric and normal rate and volume. Mood described as okay I am just sick, affect was slightly frantic. Thought process linear. Thought content: Patient denied suicidal or homicidal ideation, there were no delusions reported or noted, she denied any auditory or visual hallucinations. Attention and concentration were mostly intact and memory was significantly impaired but no more formally tested. She is alert and oriented to person and being in the hospital. Insight and judgment limited and impulse control limited. Vitals/I&O/Wt Last Vital Signs Temp 97.9 F 07/21/24 18:14 Pulse 111 H 07/21/24 18:14 Resp 16 07/21/24 18:14 BP 164/87 07/21/24 18:14 Pulse Ox 94 07/21/24 18:14 O2 Del Method Room Air 07/21/24 18:14 Weight last 48 hrs Weight 83.642 kg Data NPU 07/22/24 04:55 07/22/24 04:55 Micro: Microbiology 07/21/24 Unknown Urine Culture - Final Urine,Clean Catch Microbiology 07/21/24 Unknown Urine,Clean Catch Urine Culture - Final A&P Assessment and plan (1) Dementia: (2) Altered mental status: (3) UTI (urinary tract infection): Plan This is an 83-year-old white female with significant medical comorbidity who presents with altered mental status, history of dementia and a UTI. 1. Continue current medication. 2. No identifiable need for inpatient psychiatric services/geriatric psychiatric services. 3. History of dementia on current cognitive limitations as a historian but would be appropriate to admit to the floor and manage her medical needs without any plan for acute psychiatric services. 4. Please reconsult with any concerns. Attestations NPU 2 Medical Necessity Statement*: N/A. Please see primary team note for medical necessity. Coding Level of Care Code Acute Code for [facility] Fwd Diagnoses Dementia F03.90 Altered mental status R41.82 UTI (urinary tract infection) N39.0
[2024-07-21] MEDS: cefUROXime 250 mg Tablet 500 MG PO (18:37)
[2024-07-21 19:11] LABS: Thyroid Stimulating Hormone 3.62 uIU/mL (0.27-4.20)
[2024-07-22 04:00] VITALS: BP 132/75; PULSE 100; RESP 20; TEMP 36.7; O2SAT 96
[2024-07-22 05:42] LABS: Basophils % 0.4 %; Eosinophils # 0.6 10^3/uL (0.0-0.8); Eosinophils % 6.2 %; Hematocrit 35.1 % (36-47); Lymphocytes # 1.1 10^3/uL (0.8-4.8); Lymphocytes % 10.5 %; Mean Corpuscular HGB Conc 30.5 g/dL (30-55); Mean Corpuscular Volume 88.4 fl (85-98); Mean Platelet Volume 10.5 fL (7.4-10.4); Monocytes % 10.3 %; Neutrophils # 7.29 10^3/uL (1.8-7.7); Neutrophils % 72.3 %; Nucleated Red Blood Cells % 0 %; Platelet Count 233 10^3/cmm (157-399); Red Blood Count 3.97 10^6/uL (3.85-5.65); Red Cell Distribution Width 15.7 % (12.1-15.1); White Blood Count 10.08 10^3/uL (3.29-11.43)
[2024-07-22 06:11] LABS: Alanine Aminotransferase 17 U/L (0-33); Albumin Level 3.3 g/dL (3.5-5.2); Alkaline Phosphatase 89 U/L (35-105); Anion Gap 13.9 (5-19); Aspartate Amino Transferase 15 U/L (0-32); Blood Urea Nitrogen 18 mg/dL (8-23); Calcium 8.4 mg/dL (8.5-10.5); Carbon Dioxide 24 mmol/L (22-29); Chloride 105 mmol/L (98-107); Creatinine Clr Calc Pharmacy 51.3329; Globulin 2.2 g/dL (1.3-4.6); Glucose 98 mg/dL (65-115); Osmolality Calculated 290 mOsm/kg (285-295); Potassium 3.9 mmol/L (3.5-5.1); Sodium 139 mmol/L (136-145); Total Bilirubin 0.7 mg/dL (0.15-1.2); Total Protein 5.5 g/dL (6.6-8.7)
[2024-07-22 08:00] VITALS: BP 117/84; PULSE 104; RESP 21; TEMP 36.8; O2SAT 93
[2024-07-22] MEDS: pantoprazole DR 40 mg Tablet PO (08:17)
[2024-07-22] MEDS: nystatin powder 15 gm Btl 1 APPLIC TOPICAL ×2 (08:17→17:10)
[2024-07-22] MEDS: cefUROXime 250 mg Tablet 500 MG PO ×2 (08:17→17:09)
[2024-07-22 11:52] VITALS: BP 114/68; PULSE 91; RESP 20; TEMP 36.4; O2SAT 93
--- NOTE | 2024-07-22 14:30 | P.PN_ITS ---
Subjective 2 Subjective: no acute interim events, she denies new complaints, states that its nice being here She is noted to have wheezing on auscultation , denies any shortness if breath, saturating well on room air today. Medications: Reviewed: Yes Vitals/I&O/Wt Last Vital Signs Temp 97.6 F 07/22/24 11:52 Pulse 91 07/22/24 11:52 Resp 20 H 07/22/24 11:52 BP 114/68 07/22/24 11:52 Pulse Ox 93 07/22/24 11:52 O2 Del Method Room Air 07/22/24 11:52 07/21/24 07/22/24 07/22/24 22:59 06:59 14:59 Intake Total 120 / 120 360 / 480 1080 / 1080 Output Total 100 / 100 Balance 120 / 120 260 / 380 1080 / 1080 Weight last 48 hrs Weight 85.411 kg Weight 83.574 kg Weight 83.642 kg Physical Exam 2 Narrative: General: No acute distress, plesantly confused HEENT: PERRLA, pupils bilaterally equal and reactive, pallors not present Chest: Normal vesicular breath sounds, no added sounds, equal good air entry bilaterally CVS: S1-S2 regular, no murmurs, no tachycardia, no gallops, no rubs Abdomen: Soft, nontender, no organomegaly, bowel sounds present Neuro: No focal deficits, no facial deformity, AO x3, power 5/5 in all limbs Data 07/22/24 04:55 07/22/24 04:55 A&P Assessment and plan (1) Dementia: Patient appears to have underlying dementia HPI above for details Ct head without acute intracranial abnormalities Patient is forgetful, appears to have poor insight, appears to be having difficulty with tasks witnessed in room such as moving to commode, fidgeting with her pulse ox, lying without pants, leaving clothes on the floor, etc. This appears to be her baseline per available accounts so far She was previously cared for by her but he has since passed She was found in her home that appears to have unfit living conditions attempted to reach son- no answer- unable to leave voicemail as mailbox full obtain Angelita's assessment She is currently on a 96 hr hold, psych to see needs frequent redirection (2) UTI (urinary tract infection): WBC 11-20, 1+ bacteria, leukocytosis with WBC 12K possible UTI ? Start cefuroxime 500mg BID empirically , obtain urine cx Plan dvt ppx: Scd Full code for now 07/22/24: remained afebrile. Denies dyspnea but has wheezing B/L. this may be related to reactive airway disease as patient appears to have had a viral syndrome with sinusitis wich she described as head cold . RVP is negative currently. Will add albuterol nebulization prn for noted wheezing. Check screening D dimer and BNP. CXR clear, no pnuemonia but noted cardiomegaly. Johny emedication list today has ASA 325 but unknown indication at this time. EKg is without any acute changes. Does not appear to have capacity for her own decision making at this time, does not appear to have ability to care for self. Angelita's assessment ordered, appreciate OT. Awaiting callback from PCP Dr. Baptiste's office to check if she has a previously known diagnosis of dementia. Safe disposition planning is ongoing Attestations 2 Medical Necessity Statement*: safe disposition planning ongoing Coding Level of Care Code Acute Code for [facility] Fwd Diagnoses Dementia F03.90 UTI (urinary tract infection) N39.0
[2024-07-22 15:45] VITALS: PULSE 98; RESP 20; TEMP 36.6; O2SAT 93
--- NOTE | 2024-07-22 16:05 | P.NPUPN_ITS ---
Subjective NPU 2 Subjective: Patient presented today reporting that she is very happy that she is not feeling pain and that her pain has been managed by the treatment team. We discussed the fact that I was there again but this time to help determine whether she had decision-making capacity given some of her limitations. She could not give me any insight other than feeling sick and having some pain as to why she is here and what the doctors are trying to accomplish. She could not identify any concerns or questions related to the interventions that they were making. She could not articulate a choice as to what she would like them to do once they were finished and had no responses to questions about her being able to manage herself at home safely given the lack of support or what might happen in an environment of that limited support. She commonly would say that is not important or I do not worry about that as a way to cover up the fact that she does not remember day of the week, date, season, weather issues and even location or year of . She could not articulate any thoughts about risks, benefits and alternatives of treatments, aftercare, alternative approaches and was not all that excited about engaging in the conversation at all. Mental Status Exam 2 MSE Comments: This is an overweight versus obese elderly white female in hospital scrubs with poor grooming and hygiene with significant odor from likely not bathing recently. But adequate eye contact. No abnormal movements except for mild psychomotor agitation. Cooperative with exam in mild to moderate distress. Speech was dysarthric and normal rate and volume. Mood described as okay I am just sick, affect was slightly frantic. Thought process linear. Thought content: Patient denied suicidal or homicidal ideation, there were no delusions reported or noted, she denied any auditory or visual hallucinations. Attention and concentration were mostly intact and memory was significantly impaired but no more formally tested. She is alert and oriented to person and being in the hospital. Insight and judgment limited and impulse control limited. Vitals/I&O/Wt Last Vital Signs Temp 97.8 F 07/22/24 15:45 Pulse 98 07/22/24 15:45 Resp 20 H 07/22/24 15:45 BP 114/68 07/22/24 11:52 Pulse Ox 93 07/22/24 15:45 O2 Del Method Room Air 07/22/24 15:45 Weight last 48 hrs Data NPU 07/22/24 04:55 07/22/24 04:55 Micro: Microbiology 07/21/24 Unknown Urine Culture - Final Urine,Clean Catch Microbiology 07/21/24 Unknown Urine,Clean Catch Urine Culture - Final A&P Assessment and plan (1) Dementia: (2) Altered mental status: (3) UTI (urinary tract infection): Plan This is an 83-year-old white female with significant medical comorbidity who presents with altered mental status, history of dementia and a UTI. 1. Continue current medication. 2. No identifiable need for inpatient psychiatric services/geriatric psychiatric services. 3. History of dementia on current cognitive limitations as a historian but would be appropriate to admit to the floor and manage her medical needs without any plan for acute psychiatric services. 4. Patient is unable to articulate basic historical data as well as issues surrounding her elements. She can identify that she is no longer in pain and reporting that yesterday she was which made her feel better. However she cannot articulate what the doctors have identified as the problem leading to her being here. She cannot identify that she is sick but not what that illness is she cannot articulate what she would like them to do in regards to her illness or her going home or any salient topics. She uses common tactics of avoiding answering to cover up holes in her memory. She was able to identify her month and date of but could not say a year. She could not begin to identify the risks and benefits of different interventions, alternatives and the consequences of those. She could not even identify what the problems were let alone which she would want to do. And she could not maintain information long enough to make a decision off of information given to her contemporaneously. 5. So patient cannot provide informed consent and lacks capacity for decision making. 6. Please reconsult with any additional concerns. Attestations NPU 2 Medical Necessity Statement*: N/A. Please see primary team note for medical necessity. Coding Level of Care Code Acute Code for [facility] Fwd Diagnoses Dementia F03.90 Altered mental status R41.82 UTI (urinary tract infection) N39.0
[2024-07-22 16:34] LABS: D Dimer 0.96 ug/mLFEU (0-0.59)
[2024-07-22 16:54] LABS: NT Pro B Type Natriuretic Pept 10571 pg/mL (0-450)
[2024-07-22 19:42] VITALS: BP 116/73; PULSE 92; RESP 20; TEMP 36.8; O2SAT 95
[2024-07-22 23:10] VITALS: BP 124/80; PULSE 97; RESP 18; TEMP 36.4; O2SAT 98
[2024-07-23 04:00] VITALS: BP 147/55; PULSE 90; RESP 19; TEMP 36.6; O2SAT 96
[2024-07-23 08:00] VITALS: PULSE 98; RESP 18; O2SAT 93
[2024-07-23 09:03] VITALS: PULSE 82; RESP 18; O2SAT 93
[2024-07-23 09:27] LABS: Glucose Point of Care 142 mg/dL (70-110)
[2024-07-23] MEDS: pantoprazole DR 40 mg Tablet PO (09:39)
[2024-07-23] MEDS: cefUROXime 250 mg Tablet 500 MG PO (09:39)
[2024-07-23] MEDS: nystatin powder 15 gm Btl 1 APPLIC TOPICAL ×2 (09:40→17:05)
[2024-07-23 12:00] VITALS: BP 155/109; PULSE 99; RESP 21; O2SAT 97
--- NOTE | 2024-07-23 12:20 | USCV_ITS ---
Shira Neeta Age: 83 Gender: F : 1940 Exam Date: 07/23/2024 15:03 Ordering Phys: Kimi Suggs MD Technologist: Exam Location: [facility] [place] Indication: ? chf BP: 132 / 79 HR: 100 Rhythm: Sinus Technical Quality: Adequate MEASUREMENTS (Male / Female) Normal Values 2D ECHO LV Diastolic Diameter PLAX 5.1 cm 4.2 - 5.9 / 3.9 - 5.3 cm IVS Diastolic Thickness 1.2 cm 0.6 - 1.0 / 0.6 - 0.9 cm IVS Systolic Thickness 1.7 cm LVPW Diastolic Thickness 1.3 cm 0.6 - 1.0 / 0.6 - 0.9 cm LVPW Systolic Thickness 1.4 cm LVOT Diameter 1.8 cm LV Ejection Fraction 2D Teich 24.5 % LV Ejection Fraction MOD 4C 34.3 % LV Ejection Fraction MOD 2C 12.8 % LV Ejection Fraction 2C AL 12.5 % LA Diameter 4.8 cm RA Systolic Volume 4C AL 49.7 ml RA Systolic Volume 4C MOD 47.4 ml Aorta at Sinotubular Diameter 3.0 cm M-MODE LA Ao Ratio MM 1.3 AV Cusp Separation MM 1.6 cm DOPPLER AV Peak Velocity 229.0 cm/s LVOT Peak Velocity 89.0 cm/s AV Area Cont Eq vti 1.2 cm squared AV Area Cont Eq pk 1.0 cm squared MV Peak Velocity 214.0 cm/s MV Area PHT 5.5 cm squared Mitral E to A Ratio 1.1 TV Peak Velocity 314.5 cm/s TR Peak Velocity 338.0 cm/s TR Peak Gradient 45.7 mmHg TV Peak E Velocity 144.0 cm/s PV Peak Velocity 107.0 cm/s FINDINGS Left Ventricle Moderately increased left ventricular cavity size. Severely decreased left ventricular systolic function. Left ventricular ejection fraction is estimated at 25 %. Grade II/IV diastolic dysfunction, moderately elevated filling pressures. Right Ventricle Moderate pulmonary hypertension, RVSP 45 mmHg. Normal right ventricular size. Right Atrium The right atrium is normal in size. Left Atrium Moderately increased left atrial size. Mitral Valve Moderately thickened mitral valve. Moderate mitral annular calcification. Moderate-severe mitral valve regurgitation. Aortic Valve Severe aortic valve calcification. Moderate aortic valve stenosis, mean gradient 9 mmHg, NOLVIA 1.2 cm squared. Moderate aortic valve regurgitation. Tricuspid Valve [id number] tricuspid valve regurgitation. Pulmonic Valve Structurally normal pulmonic valve without significant stenosis. There is no pulmonic regurgitation. Pericardium Normal pericardium without effusion. Aorta Normal ascending aorta dimension. IVC The inferior vena cava appears normal. CONCLUSIONS Moderately increased left ventricular cavity size. Severely decreased left ventricular systolic function. Left ventricular ejection fraction is estimated at 25 %. Grade II/IV diastolic dysfunction, moderately elevated filling pressures. Moderately increased left atrial size. Moderately thickened mitral valve. Moderate mitral annular calcification. Moderate-severe mitral valve regurgitation. Severe aortic valve calcification. Moderate aortic valve stenosis, mean gradient 9 mmHg, NOLVIA 1.2 cm squared. Moderate aortic valve regurgitation. [id number]-ysthiowd tricuspid valve regurgitation. There is no pericardial effusion. Right atrial pressure is around 5 of mercury. Noe Cruz MD (Electronically Signed) Final Date: 25 July 2024 17:06 S
--- NOTE | 2024-07-23 14:16 | P.PN_ITS ---
Subjective 2 Subjective: No acute interim events. She is reading the Bible when going to the room. Currently able to tell me her name, age, recognizes that her birthday is coming up in 2 days, states she is at a hospital in [place]. She realizes that it is snowing outside today. When asked about her living conditions, she states that she lives with her Jitendra. I reminded her again that her has since and then she states that deep down i know he is but i dont want to beleive it so i choose to forget it. He has not been coming home recently and that has to be reson why . Again states that she has 4 sons (3 biological and 1 stepson from a previous marriage) and a daughter who has from leukemia. When i point out the fact that she appears to be short of breath and tachypenic today on attempting to compelete sentences, she reports that she has been having dyspnea on exertion for the past 3 years. She states there is nothing wrong with her heart as far as she is aware. States that she is 86 years old and states she has had a full life, she is ready to meet God if its her time. I am unable to reach her son Tawanna in spite of multiple attempts. She exhibited impaired cognition on frankie assessment, would benefit from 24 hr monitoring. She had earlier stated to OT that she has 6 sons- unable to verify the no. of children at this time. Medications: Reviewed: Yes Vitals/I&O/Wt Last Vital Signs Temp 97.8 F 07/23/24 04:00 Pulse 99 07/23/24 12:00 Resp 21 H 07/23/24 12:00 BP 155/109 07/23/24 12:00 Pulse Ox 97 07/23/24 12:00 O2 Del Method Room Air 07/23/24 12:00 07/22/24 07/23/24 07/23/24 22:59 06:59 14:59 Intake Total 240 / 1320 480 / 1800 480 / 480 Balance 240 / 1320 480 / 1800 480 / 480 Weight last 48 hrs Weight 86.727 kg Weight 85.411 kg Weight 83.574 kg Weight 83.642 kg Physical Exam 2 Narrative: General: No acute distress, becomes ort of breath in conversation HEENT: PERRLA, pupils bilaterally equal and reactive, pallors not present Chest: Normal vesicular breath sounds, no added sounds, equal good air entry bilaterally CVS: S1-S2 regular, no murmurs, no tachycardia, no gallops, no rubs Abdomen: Soft, nontender, no organomegaly, bowel sounds present Neuro: No focal deficits, no facial deformity, AO x3, power 5/5 in all limbs Extremity. Minimal pitting edema noted today. Data 07/22/24 04:55 07/22/24 04:55 Micro: Microbiology 07/21/24 Unknown Urine Culture - Final Urine,Clean Catch A&P Assessment and plan (1) Dementia: Patient appears to have underlying dementia HPI above for details Ct head without acute intracranial abnormalities Patient is forgetful, appears to have poor insight, appears to be having difficulty with tasks witnessed in room such as moving to commode, fidgeting with her pulse ox, lying without pants, leaving clothes on the floor, etc. This appears to be her baseline per available accounts so far She was previously cared for by her but he has since passed She was found in her home that appears to have unfit living conditions attempted to reach son- no answer- unable to leave voicemail as mailbox full obtain Angelita's assessment She is currently on a 96 hr hold, psych to see needs frequent redirection (2) UTI (urinary tract infection): WBC 11-20, 1+ bacteria, leukocytosis with WBC 12K possible UTI ? Start cefuroxime 500mg BID empirically , obtain urine cx Plan dvt ppx: Scd Full code for now 07/22/24: remained afebrile. Denies dyspnea but has wheezing B/L. this may be related to reactive airway disease as patient appears to have had a viral syndrome with sinusitis wich she described as head cold . RVP is negative currently. Will add albuterol nebulization prn for noted wheezing. Check screening D dimer and BNP. CXR clear, no pnuemonia but noted cardiomegaly. Johny emedication list today has ASA 325 but unknown indication at this time. EKg is without any acute changes. Does not appear to have capacity for her own decision making at this time, does not appear to have ability to care for self. Angelita's assessment ordered, appreciate OT. Awaiting callback from PCP Dr. Baptiste's office to check if she has a previously known diagnosis of dementia. Safe disposition planning is ongoing July 23, 2024 Afebrile. Denies dyspnea, however noted to becoming tachypneic in conversation. She is having a hard time completing sentences today. Saturation is well- maintained 97% on room air. BNP checked yesterday came back at 10,000. Cardiomegaly noted on chest x-ray. Will obtain echocardiogram to evaluate for underlying cardiomyopathy. D-dimer mildly elevated at 0.96, however this is age-appropriate. EKG without any acute changes. Impaired cognition as noted on [place], likely benefit from 24-hour monitoring. Patient has poor insight into her condition. She is forgetful, inconsistent with her answers. Overall clinical impression is that of dementia. I placed a call to patient's PCP office and was told that I will be be getting a call back from the clinical staff, however am yet to hear from them. Urine culture negative. Discontinue antibiotics. Attestations 2 Medical Necessity Statement*: appropriate disposition planning Coding Level of Care Code Acute Code for [facility] Fwd Diagnoses Dementia F03.90 UTI (urinary tract infection) N39.0
[2024-07-23] MEDS: enoxaparin 40 mg/0.4 mL Syringe SUBCUT (15:27)
[2024-07-23] MEDS: metoprolol succinate ER (24 HR) 25 mg Tablet 12.5 MG PO (15:28)
[2024-07-23 15:55] VITALS: BP 151/92; PULSE 103; RESP 21; O2SAT 91
[2024-07-23 20:00] VITALS: BP 147/81; PULSE 91; RESP 22; TEMP 36.4; O2SAT 96
[2024-07-23] MEDS: donepezil 5 MG Tablet PO (20:37)
[2024-07-24] VITALS (7 sets, daily range): BP systolic 130–163; BP diastolic 63–99; PULSE 79–86; RESP 17–19; TEMP 36.4–36.6; O2SAT 92–96
[2024-07-24 05:02] LABS: Basophils % 0.5 %; Eosinophils % 13.7 %; Hematocrit 36.6 % (36-47); Lymphocytes # 1.1 10^3/uL (0.8-4.8); Lymphocytes % 14.6 %; Mean Corpuscular HGB Conc 30.6 g/dL (30-55); Mean Corpuscular Hemoglobin 27.1 pg (27-33); Mean Corpuscular Volume 88.6 fl (85-98); Mean Platelet Volume 10.4 fL (7.4-10.4); Monocytes # 0.6 10^3/uL (0.2-0.9); Monocytes % 8.3 %; Neutrophils # 4.76 10^3/uL (1.8-7.7); Neutrophils % 62.8 %; Nucleated Red Blood Cells % 0 %; Platelet Count 217 10^3/cmm (157-399); Red Blood Count 4.13 10^6/uL (3.85-5.65); Red Cell Distribution Width 15.7 % (12.1-15.1); White Blood Count 7.59 10^3/uL (3.29-11.43)
[2024-07-24 05:11] LABS: Estmated Average Glucose 114; Hemoglobin A1C 5.6 % (4.0-6.0)
[2024-07-24 05:16] LABS: Alanine Aminotransferase 23 U/L (0-33); Albumin Level 3.3 g/dL (3.5-5.2); Alkaline Phosphatase 96 U/L (35-105); Aspartate Amino Transferase 28 U/L (0-32); Blood Urea Nitrogen 20 mg/dL (8-23); Calcium 8.6 mg/dL (8.5-10.5); Carbon Dioxide 22 mmol/L (22-29); Chloride 107 mmol/L (98-107); Creatinine Clr Calc Pharmacy 71.6702; Globulin 2.7 g/dL (1.3-4.6); Glucose 98 mg/dL (65-115); Osmolality Calculated 297 mOsm/kg (285-295); Sodium 142 mmol/L (136-145); Total Bilirubin 0.6 mg/dL (0.15-1.2)
[2024-07-24 05:22] LABS: Cholesterol 139 mg/dL (0-200); HDL Cholesterol 58 mg/dL (60-100); LDL Cholesterol Calculated 69 mg/dL (50-129); LDL HDL Ratio 1.19 RATIO (0.00-3.22); Triglycerides 61 mg/dL (0-150)
[2024-07-24] MEDS: metoprolol succinate ER (24 HR) 25 mg Tablet 12.5 MG PO (09:26)
[2024-07-24] MEDS: aspirin 81 mg EC Tablet PO (09:26)
[2024-07-24] MEDS: pantoprazole DR 40 mg Tablet PO (09:26)
[2024-07-24] MEDS: nystatin powder 15 gm Btl 1 APPLIC TOPICAL (09:27)
[2024-07-24] MEDS: enoxaparin 40 mg/0.4 mL Syringe SUBCUT (15:01)
--- NOTE | 2024-07-24 15:22 | P.PN_ITS ---
Subjective 2 Subjective: no acute interim events, patient walking in room today. Medications: Reviewed: Yes Vitals/I&O/Wt Last Vital Signs Temp 98 F 07/24/24 13:14 Pulse 84 07/24/24 13:14 Resp 17 07/24/24 13:14 BP 163/99 07/24/24 13:14 Pulse Ox 92 07/24/24 13:14 O2 Del Method Room Air 07/24/24 13:14 07/24/24 07/24/24 07/24/24 06:59 14:59 22:59 Intake Total 1400 / 1400 Balance 1400 / 1400 Weight last 48 hrs Weight 86.863 kg Weight 86.727 kg Physical Exam 2 Narrative: General: No acute distress, AO x2-3 HEENT: PERRLA, pupils bilaterally equal and reactive, pallors not present Chest: Normal vesicular breath sounds, no added sounds, equal good air entry bilaterally CVS: S1-S2 regular, no murmurs, no tachycardia, no gallops, no rubs Abdomen: Soft, nontender, no organomegaly, bowel sounds present Neuro: No focal deficits, no facial deformity, AO x2-3, power 5/5 in all limbs Data 07/24/24 04:29 07/24/24 04:29 Micro: Microbiology 07/21/24 Unknown Urine Culture - Final Urine,Clean Catch A&P Assessment and plan (1) Dementia: Patient appears to have underlying dementia HPI above for details Ct head without acute intracranial abnormalities Patient is forgetful, appears to have poor insight, appears to be having difficulty with tasks witnessed in room such as moving to commode, fidgeting with her pulse ox, lying without pants, leaving clothes on the floor, etc. This appears to be her baseline per available accounts so far She was previously cared for by her but he has since passed She was found in her home that appears to have unfit living conditions attempted to reach son- no answer- unable to leave voicemail as mailbox full obtain Angelita's assessment She is currently on a 96 hr hold, psych to see needs frequent redirection (2) UTI (urinary tract infection): WBC 11-20, 1+ bacteria, leukocytosis with WBC 12K possible UTI ? Start cefuroxime 500mg BID empirically , obtain urine cx Plan dvt ppx: Scd Full code for now 07/22/24: remained afebrile. Denies dyspnea but has wheezing B/L. this may be related to reactive airway disease as patient appears to have had a viral syndrome with sinusitis wich she described as head cold . RVP is negative currently. Will add albuterol nebulization prn for noted wheezing. Check screening D dimer and BNP. CXR clear, no pnuemonia but noted cardiomegaly. Johny emedication list today has ASA 325 but unknown indication at this time. EKg is without any acute changes. Does not appear to have capacity for her own decision making at this time, does not appear to have ability to care for self. Angelita's assessment ordered, appreciate OT. Awaiting callback from PCP Dr. Baptiste's office to check if she has a previously known diagnosis of dementia. Safe disposition planning is ongoing July 23, 2024 Afebrile. Denies dyspnea, however noted to becoming tachypneic in conversation. She is having a hard time completing sentences today. Saturation is well- maintained 97% on room air. BNP checked yesterday came back at 10,000. Cardiomegaly noted on chest x-ray. Will obtain echocardiogram to evaluate for underlying cardiomyopathy. D-dimer mildly elevated at 0.96, however this is age-appropriate. EKG without any acute changes. Impaired cognition as noted on Derrell, likely benefit from 24-hour monitoring. Patient has poor insight into her condition. She is forgetful, inconsistent with her answers. Overall clinical impression is that of dementia. I placed a call to patient's PCP office and was told that I will be be getting a call back from the clinical staff, however am yet to hear from them. Urine culture negative. Discontinue antibiotics. July 24, 2024 H/o dementia noted as far back as 2021 per discussion with PCP office. Patient was last seen in PCP's office in 2021. Started donepezil 5mg daily. Additionally noted to have uncontrolled BP. Metoprolol 12.5mg daily was added yesterday, HR 80s. BP still with SBP 160s, add lisinopril 5mg po daily and monitor renal function and electrolytes. Awaiting echocardiogram, suspected heart failure as underlying cause of long standing dyspnea on exertion Attestations 2 Medical Necessity Statement*: awaiting guardianship, disposition planning, patient unsafe for discharge home alone Coding Level of Care Code Acute Code for [facility] Fwd Diagnoses Dementia F03.90 UTI (urinary tract infection) N39.0
[2024-07-24] MEDS: lisinopril 5 mg Tablet PO (17:23)
[2024-07-24] MEDS: donepezil 5 MG Tablet PO (20:09)
[2024-07-25] VITALS (8 sets, daily range): BP systolic 98–152; BP diastolic 55–83; PULSE 70–79; RESP 16–18; TEMP 36.4–37; O2SAT 90–96
[2024-07-25] MEDS: lisinopril 5 mg Tablet PO (09:49)
[2024-07-25] MEDS: aspirin 81 mg EC Tablet PO (09:49)
[2024-07-25] MEDS: metoprolol succinate ER (24 HR) 25 mg Tablet 12.5 MG PO (09:49)
[2024-07-25] MEDS: pantoprazole DR 40 mg Tablet PO (09:49)
[2024-07-25] MEDS: nystatin powder 15 gm Btl 1 APPLIC TOPICAL ×2 (09:50→18:01)
[2024-07-25] MEDS: enoxaparin 40 mg/0.4 mL Syringe SUBCUT (15:26)
[2024-07-25] MEDS: donepezil 5 MG Tablet PO (20:22)
[2024-07-26] VITALS (8 sets, daily range): BP systolic 119–161; BP diastolic 71–90; PULSE 71–89; RESP 15–18; TEMP 36.4–36.9; O2SAT 94–98
[2024-07-26 05:12] LABS: Basophils % 0.4 %; Eosinophils % 14.4 %; Lymphocytes # 1.3 10^3/uL (0.8-4.8); Lymphocytes % 18.7 %; Mean Corpuscular HGB Conc 30.6 g/dL (30-55); Mean Corpuscular Hemoglobin 26.8 pg (27-33); Mean Corpuscular Volume 87.8 fl (85-98); Mean Platelet Volume 10.1 fL (7.4-10.4); Monocytes # 0.6 10^3/uL (0.2-0.9); Monocytes % 8.4 %; Neutrophils # 3.87 10^3/uL (1.8-7.7); Nucleated Red Blood Cells % 0 %; Platelet Count 225 10^3/cmm (157-399); Red Cell Distribution Width 15.4 % (12.1-15.1); White Blood Count 6.68 10^3/uL (3.29-11.43)
[2024-07-26 05:40] LABS: Alanine Aminotransferase 50 U/L (0-33); Albumin Level 3.4 g/dL (3.5-5.2); Alkaline Phosphatase 95 U/L (35-105); Anion Gap 15.1 (5-19); Aspartate Amino Transferase 59 U/L (0-32); Blood Urea Nitrogen 22 mg/dL (8-23); Calcium 8.7 mg/dL (8.5-10.5); Carbon Dioxide 23 mmol/L (22-29); Chloride 109 mmol/L (98-107); Creatinine Clr Calc Pharmacy 61.0636; Globulin 2.5 g/dL (1.3-4.6); Glucose 112 mg/dL (65-115); Osmolality Calculated 300 mOsm/kg (285-295); Potassium 4.1 mmol/L (3.5-5.1); Sodium 143 mmol/L (136-145); Total Bilirubin 0.4 mg/dL (0.15-1.2); Total Protein 5.9 g/dL (6.6-8.7)
[2024-07-26] MEDS: metoprolol succinate ER (24 HR) 25 mg Tablet 12.5 MG PO (07:46)
[2024-07-26] MEDS: pantoprazole DR 40 mg Tablet PO (07:46)
[2024-07-26] MEDS: nystatin powder 15 gm Btl 1 APPLIC TOPICAL ×2 (07:47→18:16)
[2024-07-26] MEDS: aspirin 81 mg EC Tablet PO (07:47)
--- NOTE | 2024-07-26 13:42 | PM.PN ---
Subjective Subjective: Seen this morning. No longer short of breath. Saturating 94% on room air. She states she is in [place] however does not know that this is [facility] or this is a hospital. Does not want to talk about the president. Is confused however Vitals/I&O/Wt Last Vital Signs Temp 98 F 07/26/24 11:45 Pulse 71 07/26/24 11:45 Resp 18 07/26/24 11:45 BP 157/72 07/26/24 11:45 Pulse Ox 94 07/26/24 11:45 O2 Del Method Room Air 07/26/24 11:45 07/25/24 07/26/24 07/26/24 22:59 06:59 14:59 Intake Total 515 / 1109 240 / 1349 528 / 528 Balance 515 / 1109 240 / 1349 528 / 528 Weight last 48 hrs Weight 84.64 kg Weight 84.595 kg Physical Exam Narrative: General: No acute distress, AO x2-3 HEENT: PERRLA, pupils bilaterally equal and reactive, pallors not present Chest: Normal vesicular breath sounds, no added sounds, equal good air entry bilaterally CVS: S1-S2 regular, no murmurs, no tachycardia, no gallops, no rubs Abdomen: Soft, nontender, no organomegaly, bowel sounds present Neuro: No focal deficits, no facial deformity, AO x2-3, power 5/5 in all limbs Data 07/26/24 04:56 07/26/24 04:56 A&P Assessment and plan (1) Dementia: Patient appears to have underlying dementia HPI above for details Ct head without acute intracranial abnormalities Patient is forgetful, appears to have poor insight, appears to be having difficulty with tasks witnessed in room such as moving to commode, fidgeting with her pulse ox, lying without pants, leaving clothes on the floor, etc. This appears to be her baseline per available accounts so far She was previously cared for by her but he has since passed She was found in her home that appears to have unfit living conditions attempted to reach son- no answer- unable to leave voicemail as mailbox full obtain Angelita's assessment She is currently on a 96 hr hold, psych to see needs frequent redirection (2) UTI (urinary tract infection): WBC 11-20, 1+ bacteria, leukocytosis with WBC 12K possible UTI ? Start cefuroxime 500mg BID empirically , obtain urine cx Plan dvt ppx: Scd Full code for now 07/22/24: remained afebrile. Denies dyspnea but has wheezing B/L. this may be related to reactive airway disease as patient appears to have had a viral syndrome with sinusitis wich she described as head cold . RVP is negative currently. Will add albuterol nebulization prn for noted wheezing. Check screening D dimer and BNP. CXR clear, no pnuemonia but noted cardiomegaly. Johny emedication list today has ASA 325 but unknown indication at this time. EKg is without any acute changes. Does not appear to have capacity for her own decision making at this time, does not appear to have ability to care for self. Angelita's assessment ordered, appreciate OT. Awaiting callback from PCP Dr. Baptiste's office to check if she has a previously known diagnosis of dementia. Safe disposition planning is ongoing July 23, 2024 Afebrile. Denies dyspnea, however noted to becoming tachypneic in conversation. She is having a hard time completing sentences today. Saturation is well-maintained 97% on room air. BNP checked yesterday came back at 10,000. Cardiomegaly noted on chest x-ray. Will obtain echocardiogram to evaluate for underlying cardiomyopathy. D-dimer mildly elevated at 0.96, however this is age-appropriate. EKG without any acute changes. Impaired cognition as noted on Derrell, likely benefit from 24-hour monitoring. Patient has poor insight into her condition. She is forgetful, inconsistent with her answers. Overall clinical impression is that of dementia. I placed a call to patient's PCP office and was told that I will be be getting a call back from the clinical staff, however am yet to hear from them. Urine culture negative. Discontinue antibiotics. July 24, 2024 H/o dementia noted as far back as 2021 per discussion with PCP office. Patient was last seen in PCP's office in 2021. Started donepezil 5mg daily. Additionally noted to have uncontrolled BP. Metoprolol 12.5mg daily was added yesterday, HR 80s. BP still with SBP 160s, add lisinopril 5mg po daily and monitor renal function and electrolytes. Awaiting echocardiogram, suspected heart failure as underlying cause of long standing dyspnea on exertion 07/26/2024 Echo shows EF of 25%. Grade 2.4 diastolic dysfunction. Moderate aortic valve stenosis, moderate aortic valve regurgitation. Will order Lasix 20 IV daily. ? Patient has refused cardiac workup in the past. Had a discussion with her however she states there is nothing wrong with my heart. She does not seem very amenable to further procedures. Will continue medical management at this time. Will again talk to patient tomorrow. Once guardianship is obtained we will discuss with patient's guardian regarding further procedures. Placed on Lasix 20 IV daily and transition to oral in next few days. Attestations Medical Necessity Statement*: .Awaiting guardianship later and treatment for heart failure. Diagnoses Dementia F03.90 UTI (urinary tract infection) N39.0
[2024-07-26] MEDS: enoxaparin 40 mg/0.4 mL Syringe SUBCUT (15:31)
[2024-07-26] MEDS: lisinopril 2.5 mg Tablet PO (15:37)
[2024-07-26] MEDS: FUROsemide 20 mg Tablet PO (15:38)
[2024-07-26] MEDS: donepezil 5 MG Tablet PO (21:31)
[2024-07-27] VITALS (7 sets, daily range): BP systolic 148–186; BP diastolic 70–90; PULSE 73–88; RESP 16–20; TEMP 36.3–36.6; O2SAT 94–97
[2024-07-27 06:23] LABS: Blood Urea Nitrogen 22 mg/dL (8-23); Calcium 8.9 mg/dL (8.5-10.5); Carbon Dioxide 24 mmol/L (22-29); Chloride 108 mmol/L (98-107); Creatinine Clr Calc Pharmacy 55.0455; Glucose 115 mg/dL (65-115); Magnesium 1.9 mg/dL (1.7-2.3); Osmolality Calculated 298 mOsm/kg (285-295); Sodium 142 mmol/L (136-145)
[2024-07-27] MEDS: lisinopril 2.5 mg Tablet PO (09:03)
[2024-07-27] MEDS: FUROsemide 20 mg Tablet PO (09:03)
[2024-07-27] MEDS: metoprolol succinate ER (24 HR) 25 mg Tablet 12.5 MG PO (09:03)
[2024-07-27] MEDS: aspirin 81 mg EC Tablet PO (09:03)
[2024-07-27] MEDS: pantoprazole DR 40 mg Tablet PO (09:03)
[2024-07-27] MEDS: nystatin powder 15 gm Btl 1 APPLIC TOPICAL (09:03)
--- NOTE | 2024-07-27 13:09 | P.CONIM_ITS ---
<Statement entered by Noe Cruz MD - 07/27/24 20:24> Patient was evaluated and cared for in conjunction with an advanced practice practitioner. I personally examined the patient and reviewed the chart and all pertinent data including imaging, telemetry, and laboratory results. I discussed the patient in detail with the advanced practice practitioner. Please see their note for complete H&P testing result and agreed upon plan of care for the patient. 84-year-old old female with altered mental status underlying dementia who has refused most of the treatment and not interested in any invasive therapy presented with new onset of heart failure LV dysfunction and aortic valve disease GENERAL: Patient is sleepy and appearing confused HEART: Regular S1 and S2. 2 x 6 systolic murmur LUNGS: Clear to auscultate bilaterally. CENTRAL NERVOUS SYSTEM: Grossly nonfocal. EXTREMITIES: Lower extremities with out edema bilaterally. New onset of heart failure Moderate to severe LV dysfunction Aortic valve disorder Dementia confusion Continue conservative management patient is not a candidate for invasive assessment such as left heart cath to rule out etiology if needed stress test can be performed as a Lexiscan to differentiate between ischemic versus nonischemic cardiomyopathy however at this point given her underlying dementia confusion we recommend no further testing but guideline medical therapy for heart failure and optimization of medicine to control blood pressure. Providers/Reason For Consult 2 Consulting Physician/Specialty*: Dr Cruz, cardiology Reason for Consult*: new onset LV dysfunction, heart failure Requesting Physician: Dr Saldana Attending Physician: Esmer Saldana MD Primary Care Provider: Juan José Baptiste History of Present Illness History of Present Illness Neeta Silva is a 84 year old female who presented to the emergency room on 07/21/24 with altered mental status. She was placed on 96-hour hold, evaluated by psychiatry which did not feel she needed inpatient psychiatric services. She is felt to have underlying dementia and family has not been involved in her care with this admission. She has refused to have an IV placed but has allowed other testing such as lab draw and urine cultures. She was noted to be volume overloaded and was diuresed. EKG on 07/21/24 showed sinus tachycardia, heart rate 100 bpm, left axis deviation and possible old anterior CT, Q wave in leads V3/V4. Echocardiogram was obtained on 07/23/24, showing LVF 25% moderately increased LV cavity size grade 2 diastolic dysfunction, moderate pulmonary hypertension (RVSP 45 mmHg), moderate to severe mitral regurgitation, moderate aortic stenosis mean gradient 9 mmHg, NOLVIA 1.2 cm2, moderate aortic regurgitation, [id number] tricuspid regurgitation. She was previously seen in the emergency room in 2021 for dizziness, EKG at that time showed sinus tachycardia with anteroseptal CT in leads V1-V4. She declined admission for further workup in the hospital so she was discharged with referral to Dr Burger, but did not attend that visit. We do not have any cardiac history or previous imaging to compare. Her hemoglobin is 11, BUN 22, creatinine 1.0, increased from 0.8 on admission. She has not had a troponin. Hemoglobin A1c 5.6. Treated empirically for UTI. Review of Systems 2 Const: Denies: fever(s), chills, change in weight, fatigue or diaphoresis Eyes: Denies: change in vision ENMT: Denies: epistaxis Card: Denies: chest pain, palpitations, irregular heart rhythm, edema, syncope, pre-syncope, dyspnea on exertion, orthopnea or leg pain with exertion Resp: Denies: dyspnea, productive cough or wheezing GI: Denies: nausea, vomiting, hematemesis, hematochezia or melena : Denies: hematuria Musc: Denies: extremity swelling Te/Lymph: Denies: easy bruising or easy bleeding Medications/Allergies Home Medications Medication Instructions Recorded Confirmed Last Taken Type acetaminophen 325 mg tablet 325 mg PO QID PRN pain or fever 07/21/24 07/21/24 Unknown History (Tylenol) aspirin 325 mg tablet (Roque 325 mg PO BID 07/21/24 07/21/24 Unknown History Aspirin) Allergies Allergy/AdvReac Type Severity Reaction Status Date / Time chlorine Allergy ADR-Nausea Uncoded 10/25/21 18:25 Current Medications Generic Name Dose Route Start Last Admin Trade Name Freq PRN Reason Stop Dose Admin Aspirin 81 mg 07/24/24 09:00 07/27/24 09:03 Aspirin 81 Mg Ec Tablet PO 81 mg DAILY ROMY Administration Donepezil HCl 5 mg 07/23/24 21:00 07/26/24 21:31 Donepezil 5 Mg Tablet PO 5 mg BEDTIME ROMY Administration Enoxaparin Sodium 40 mg 07/23/24 14:15 07/26/24 15:31 Enoxaparin 40 Mg/0.4 Ml Syringe SUBCUT 40 mg Q24H ROMY Administration Furosemide 20 mg 07/26/24 15:30 07/27/24 09:03 Furosemide 20 Mg Tablet PO 20 mg DAILY@0800 ROMY Administration Lisinopril 2.5 mg 07/27/24 09:00 07/27/24 09:03 Lisinopril 2.5 Mg Tablet PO 2.5 mg DAILY ROMY Administration Metoprolol Succinate 12.5 mg 07/23/24 14:15 07/27/24 09:03 Metoprolol Succinate Er (24 Hr) 25 Mg Tablet PO 12.5 mg DAILY ROMY Administration Nystatin 1 applic 07/22/24 09:00 07/27/24 09:03 Nystatin Powder 15 Gm Btl TOPICAL 1 applic BID ROMY Administration Pantoprazole Sodium 40 mg 07/22/24 09:00 07/27/24 09:[address] 40 Mg Tablet PO 40 mg DAILY ROMY Administration PFSH Acute 2 PFSH: Medical History No significant past medical history Social History Smoking and tobacco/nicotine status: never used tobacco/nicotine Alcohol intake: never Substance/Drug Use: never Vitals/I&O/Wt Last Vital Signs Temp 97.8 F 07/27/24 12:08 Pulse 73 07/27/24 12:08 Resp 18 07/27/24 12:08 BP 171/83 07/27/24 12:08 Pulse Ox 96 07/27/24 12:08 O2 Del Method Room Air 07/27/24 12:08 07/26/24 07/27/24 07/27/24 22:59 06:59 14:59 Intake Total 720 / 1368 120 / 1368 480 / 480 Balance 720 / 1368 120 / 1368 480 / 480 Weight last 48 hrs Weight 186 lb 14.4 oz Weight 186 lb 9.6 oz Physical Exam 2 Const: COMMON NORMALS: alert ORIENTATION/CONSCIOUSNESS: Yes oriented to person; not oriented to place and not oriented to time OTHER: She is talking to herself on the phone, it is not ringing. Resp: COMMON NORMALS: normal respiratory effort and clear to auscultation bilaterally AUSCULTATION: clear to auscultation bilaterally Cardio: COMMON NORMALS: regular rate, regular rhythm, S1 normal heart sound present and S2 normal heart sound present RATE: regular rate RHYTHM: r egular rhythm HEART SOUNDS: S1 normal heart sound present, S2 normal heart sound present, no gallops and no murmurs PERIPHERAL PULSES: radial pulses present Neuro: SENSORIUM/ORIENTATION: Yes alert, Yes oriented to person, No oriented to place and No oriented to time Data 07/26/24 04:56 07/27/24 05:26 A&P Assessment and plan (1) Altered mental status: (2) Systolic CHF: She has new onset systolic CHF, LVEF reduced to 25% by echocardiogram on 07/23/24. We do not have any history of cardiomyopathy, ischemic or otherwise. She has been refusing IV access to this point. We may consider a stress test with her to evaluate the LV dysfunction, however given her mental status and dementia she is not thought to be a good candidate for coronary angiogram. Her terminal gauger supervisor disposition is planned for fpc upon discharge, hospitalist is in process of obtaining state guardianship given there is no family involvement and she is not felt competent to direct her own care. At this point will recommend medical management of systolic CHF. Her blood pressure is high, will stop lisinopril and after 36 hour washout start her on Entresto 24/26mg BID, uptitrate metoprolol succinate to 25mg daily, continue aspirin 81 mg daily. Qualifiers: Heart failure chronicity: acute Qualified Code(s): I50.21 - Acute systolic (congestive) heart failure Consult Attestations 2 Medical Necessity Statement: per hospitalist, care for new onset CHF medically managed Coding Level of Care Code Acute Code for [facility] Fwd Diagnoses Altered mental status R41.82 Acute systolic congestive heart failure I50.21 Heart failure chronicity: acute
[2024-07-27] MEDS: enoxaparin 40 mg/0.4 mL Syringe SUBCUT (14:23)
--- NOTE | 2024-07-27 14:26 | P.PN_ITS ---
Subjective 2 Subjective: Seen today. Denies any chest pain at this time. Sitting up in chair. Discussed with her regarding angiogram or potential procedures. She states ED report and I do my part Vitals/I&O/Wt Last Vital Signs Temp 97.8 F 07/27/24 12:08 Pulse 73 07/27/24 12:08 Resp 18 07/27/24 12:08 BP 171/83 07/27/24 12:08 Pulse Ox 96 07/27/24 12:08 O2 Del Method Room Air 07/27/24 12:08 07/26/24 07/27/24 07/27/24 22:59 06:59 14:59 Intake Total 720 / 1248 120 / 1368 960 / 960 Balance 720 / 1248 120 / 1368 960 / 960 Weight last 48 hrs Weight 84.776 kg Weight 84.64 kg Physical Exam 2 Narrative: General: No acute distress, AO x2-3 HEENT: PERRLA, pupils bilaterally equal and reactive, pallors not present Chest: Normal vesicular breath sounds, no added sounds, equal good air entry bilaterally CVS: S1-S2 regular, no murmurs, no tachycardia, no gallops, no rubs Abdomen: Soft, nontender, no organomegaly, bowel sounds present Neuro: No focal deficits, no facial deformity, AO x2-3, power 5/5 in all limbs Data 07/26/24 04:56 07/27/24 05:26 A&P Assessment and plan (1) Dementia: Patient appears to have underlying dementia HPI above for details Ct head without acute intracranial abnormalities Patient is forgetful, appears to have poor insight, appears to be having difficulty with tasks witnessed in room such as moving to commode, fidgeting with her pulse ox, lying without pants, leaving clothes on the floor, etc. This appears to be her baseline per available accounts so far She was previously cared for by her but he has since passed She was found in her home that appears to have unfit living conditions attempted to reach son- no answer- unable to leave voicemail as mailbox full obtain Angelita's assessment She is currently on a 96 hr hold, psych to see needs frequent redirection (2) UTI (urinary tract infection): WBC 11-20, 1+ bacteria, leukocytosis with WBC 12K possible UTI ? Start cefuroxime 500mg BID empirically , obtain urine cx Plan dvt ppx: Scd Full code for now 07/22/24: remained afebrile. Denies dyspnea but has wheezing B/L. this may be related to reactive airway disease as patient appears to have had a viral syndrome with sinusitis wich she described as head cold . RVP is negative currently. Will add albuterol nebulization prn for noted wheezing. Check screening D dimer and BNP. CXR clear, no pnuemonia but noted cardiomegaly. Johny emedication list today has ASA 325 but unknown indication at this time. EKg is without any acute changes. Does not appear to have capacity for her own decision making at this time, does not appear to have ability to care for self. Angelita's assessment ordered, appreciate OT. Awaiting callback from PCP Dr. Baptiste's office to check if she has a previously known diagnosis of dementia. Safe disposition planning is ongoing July 23, 2024 Afebrile. Denies dyspnea, however noted to becoming tachypneic in conversation. She is having a hard time completing sentences today. Saturation is well- maintained 97% on room air. BNP checked yesterday came back at 10,000. Cardiomegaly noted on chest x-ray. Will obtain echocardiogram to evaluate for underlying cardiomyopathy. D-dimer mildly elevated at 0.96, however this is age-appropriate. EKG without any acute changes. Impaired cognition as noted on Derrell, likely benefit from 24-hour monitoring. Patient has poor insight into her condition. She is forgetful, inconsistent with her answers. Overall clinical impression is that of dementia. I placed a call to patient's PCP office and was told that I will be be getting a call back from the clinical staff, however am yet to hear from them. Urine culture negative. Discontinue antibiotics. July 24, 2024 H/o dementia noted as far back as 2021 per discussion with PCP office. Patient was last seen in PCP's office in 2021. Started donepezil 5mg daily. Additionally noted to have uncontrolled BP. Metoprolol 12.5mg daily was added yesterday, HR 80s. BP still with SBP 160s, add lisinopril 5mg po daily and monitor renal function and electrolytes. Awaiting echocardiogram, suspected heart failure as underlying cause of long standing dyspnea on exertion 07/26/2024 Echo shows EF of 25%. Grade 2.4 diastolic dysfunction. Moderate aortic valve stenosis, moderate aortic valve regurgitation. Will order Lasix 20 IV daily. ? Patient has refused cardiac workup in the past. Had a discussion with her however she states there is nothing wrong with my heart. She does not seem very amenable to further procedures. Will continue medical management at this time. Will again talk to patient tomorrow. Once guardianship is obtained we will discuss with patient's guardian regarding further procedures. Placed on Lasix 20 IV daily and transition to oral in next few days. 07/27/2024 Patient has refused an IV since admission. Will place on Lasix 20 oral daily ? Guardianship is still pending ? Consult cardiology. Discussed with cardiology they will see him in consultation. ? Echo shows EF of 25%. Grade 2.4 diastolic dysfunction. Moderate aortic valve stenosis, moderate aortic valve regurgitation. -Pending placement ? Continue aspirin lisinopril Lasix metoprolol Attestations 2 Medical Necessity Statement*: .Awaiting guardianship later and treatme nt for heart failure. Diagnoses Dementia F03.90 UTI (urinary tract infection) N39.0
[2024-07-27] MEDS: donepezil 5 MG Tablet PO (20:48)
[2024-07-28] VITALS: BP 148/70; PULSE 86; RESP 18; TEMP 36.6; O2SAT 97
[2024-07-28] MEDS: trazodone 50 mg Tablet 25 MG PO (02:06)
[2024-07-28 04:00] VITALS: BP 142/68; PULSE 82; RESP 18; TEMP 36.9; O2SAT 95
[2024-07-28 05:43] LABS: Blood Urea Nitrogen 29 mg/dL (8-23); Calcium 9.2 mg/dL (8.5-10.5); Carbon Dioxide 28 mmol/L (22-29); Chloride 108 mmol/L (98-107); Creatinine Clr Calc Pharmacy 68.6965; Glucose 91 mg/dL (65-115); Osmolality Calculated 305 mOsm/kg (285-295); Sodium 145 mmol/L (136-145)
[2024-07-28 05:53] LABS: Anion Gap 12.9 (5-19); Potassium 3.9 mmol/L (3.5-5.1)
[2024-07-28 08:00] VITALS: BP 168/72; PULSE 81; RESP 19; TEMP 36.7; O2SAT 97
[2024-07-28 08:06] VITALS: PULSE 81; RESP 16; O2SAT 96
[2024-07-28] MEDS: pantoprazole DR 40 mg Tablet PO (08:08)
[2024-07-28] MEDS: metoprolol succinate ER (24 HR) 25 mg Tablet PO (08:08)
[2024-07-28] MEDS: aspirin 81 mg EC Tablet PO (08:08)
[2024-07-28] MEDS: FUROsemide 20 mg Tablet PO (08:08)
[2024-07-28] MEDS: acetaminophen 325 mg Tablet 650 MG PO (08:10)
[2024-07-28] MEDS: nystatin powder 15 gm Btl 1 APPLIC TOPICAL (08:11)
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
--- NOTE | 2024-07-28 10:43 | PC.NURSE ---
This nurse called report to CAITY Dumont at [facility] at 1041am.
== END 2024-07-28 11:59 | disposition skilled nursing facility (03) ==
LOC: ER 16:27 → MEDSURG 17:54
PROVIDERS: Admitting Provider Student in an Organized Health Care Education/Training Program; Emergency Provider Emergency Medicine; PCP Family Medicine; Visit Provider Internal Medicine
DX: R41.82 Altered mental status, unspecified (principal); I50.21 Acute systolic (congestive) heart failure; F03.90 Unspecified dementia, unspecified severity, without behavioral disturbance, psychotic disturbance, mood disturbance, and anxiety; Z59.10 Inadequate housing, unspecified; N39.0 Urinary tract infection, site not specified
CPT/HCPCS: 36415; 36416; 70450; 71045; 80048; 80053; 80061; 80306; 80307; 81001; 82962; 83036; 83735; 83880; 84443; 85025; 85378; 87086; 87486; 87581; 87633; 93005; 93306; 96372; 97167; 97530; 99285; G0378; J1650

== ENCOUNTER → 2024-09-06 13:53 | Outpatient (BNVA) | payer MEDICARE, SELFPAY | PROVIDERS: PCP Family Medicine; Visit Provider Nurse Practitioner Family | DX: I50.20 Unspecified systolic (congestive) heart failure (principal) | CPT/HCPCS: 99213 ==

== ENCOUNTER → 2024-12-03 08:49 | Outpatient (BNVA) | payer MEDICARE, SELFPAY | PROVIDERS: PCP Family Medicine; Visit Provider Internal Medicine Cardiovascular Disease | DX: I50.21 Acute systolic (congestive) heart failure (principal); I42.8 Other cardiomyopathies; Z79.01 Long term (current) use of anticoagulants; Z79.82 Long term (current) use of aspirin | CPT/HCPCS: 99214 ==

== ENCOUNTER → 2025-06-16 09:40 | Outpatient (BNVA) | payer MEDICARE, MEDICAID, SELFPAY | PROVIDERS: PCP Family Medicine; Visit Provider Nurse Practitioner Family | DX: I50.20 Unspecified systolic (congestive) heart failure (principal); E11.9 Type 2 diabetes mellitus without complications; I08.3 Combined rheumatic disorders of mitral, aortic and tricuspid valves; Z87.891 Personal history of nicotine dependence | CPT/HCPCS: 99214 ==